=== PATIENT | female | born 1985 | race Hispanic/Latino ===

== ENCOUNTER 2017-04-08 09:43 | Emergency (ER) | payer OTHER | END 2017-04-08 12:11 | disposition home or self-care (01) | LOC: ERS 09:43 | DX: L25.9 Unspecified contact dermatitis, unspecified cause (principal); J45.909 Unspecified asthma, uncomplicated | CPT/HCPCS: 99282 ==

== ENCOUNTER 2017-08-08 16:47 | Outpatient (CLI) | payer OTHER ==
--- NOTE | 2017-08-08 18:15 | RAD ---
2 VIEWS LEFT HIP: Date: 08/08/17 PROVIDED CLINICAL HISTORY: Chronic left hip pain. FINDINGS: There is no evidence for fracture or other acute osseous abnormality. There is concentric/axial left hip joint space loss. There is associated acetabular overcoverage, which may predispose to femoral-ac etabular impingement. IMPRESSION: Axial joint space loss, which can be seen in the setting of inflammatory arthritis. Resultant acetabu lar overcoverage may predispose femoral-acetabular impingement. POS: LILA
--- NOTE | 2017-08-08 18:19 | RAD ---
RIGHT HIP RADIOGRAPHS TWO VIEWS: 08/08/2017 PROVIDED CLINICAL HISTORY: Right hip pain. FINDINGS: No evidence for fracture or other acute osseous abnormality. Postoperative changes of dynamic compre ssion screw fixation of previously described femoral fracture. No evidence for hardware loosening or migration. Right hip joint space appears mildly narrowed concentrically. There is resultant acetab ular over-coverage, which may predispose to femoral-acetabular impingement. IMPRESSION: 1. Post open reduction and internal fixation without evidence for complication. 2. Mild concentric/axial hip joint space loss, which can be seen in the setting of inflammatory arth ritis. Resultant acetabular over-coverage may predispose to femoral-acetabular impingement. POS: LILA
== END 2017-08-08 16:48 | disposition home or self-care (01) ==
LOC: SCSRAD 16:47
PROVIDERS: ATTEND Family Medicine
DX: M25.851 Other specified joint disorders, right hip (principal); M25.852 Other specified joint disorders, left hip; Z98.890 Other specified postprocedural states

== ENCOUNTER 2019-12-27 12:34 | Outpatient (CLI) | payer OTHER ==
--- NOTE | 2019-12-27 14:34 | CT ---
CT ABDOMEN AND PELVIS WITH AND WITHOUT IV CONTRAST 12/27/2019 CLINICAL INFORMATION: Microscopic hematuria. COMPARISON: None. Technique: Multiple contiguous axial CT images are obtained through the abdomen and pelvis with IV contrast. Cor onal reformatted images are provided. FINDINGS: Lower Chest: Lung bases are clear. Vessels: Abdominal aorta is normal in caliber. Abdomen: Portal vein:Patent Gallbladder: Surgically absent. Liver: within normal limits. Spleen: within normal limits. Pancreas: within normal limits. Adrenals: within normal limits. Kidneys and ureters: No renal or ureteral calculi are seen bilaterally, and there is no hydronephrosi s. No enhancing renal mass is identified. Bowel: Normal caliber. Appendix: The appendix is visualized and normal in caliber. Peritoneum: No ascites or free air; no fluid collection. Surgical clips are seen in the right posteri or lower pelvis and left anterior pelvis. Mesentery and Retroperitoneum: No enlarged mesenteric or retroperitoneal lymph nodes. Abdominal Wall: Tiny fat-containing umbilical hernia Pelvis: Reproductive Organs: No pelvic masses. Bladder: Incompletely distended. Bones: Postoperative changes right hip. No suspicious lytic or sclerotic osseous lesions are identifi ed. IMPRESSION: No renal or ureteral calculi are seen bilaterally, and no enhancing renal mass is identified.
== END 2019-12-27 12:35 | disposition home or self-care (01) ==
LOC: BICCT 12:34
PROVIDERS: ATTEND Family Medicine
DX: R31.29 Other microscopic hematuria (principal)
CPT/HCPCS: 74178

== ENCOUNTER 2021-04-21 13:06 | Outpatient (CLI) | payer BC | END 2021-04-21 13:07 | disposition home or self-care (01) | LOC: DTY/OP 13:06 | PROVIDERS: ATTEND Surgery | DX: E66.01 Morbid (severe) obesity due to excess calories (principal) | CPT/HCPCS: 97802 ==

== ENCOUNTER 2021-05-09 08:18 | Emergency (ER) | payer BC ==
[2021-05-09] MEDS ORDERED: Ketorolac Tromethamine 30 MG/ML VIAL ONE (08:46)
== END 2021-05-09 08:51 | disposition home or self-care (01) ==
LOC: ERS 08:18
DX: M25.531 Pain in right wrist (principal); J45.909 Unspecified asthma, uncomplicated; Z79.899 Other long term (current) drug therapy
CPT/HCPCS: 96372; 99283; J1885

== ENCOUNTER 2021-07-19 13:06 | Outpatient (CLI) | payer BC ==
[2021-07-20 00:10] LABS: SARS-CoV-2 PCR by NAA Not Detected (NotDetected)
== END 2021-07-19 13:07 | disposition home or self-care (01) ==
LOC: LABBT 13:06
PROVIDERS: ATTEND Surgery
DX: Z20.822 Contact with and (suspected) exposure to COVID-19 (principal)
CPT/HCPCS: U0003; U0005

== ENCOUNTER 2021-07-23 13:21 | Outpatient (CLI) | payer BC | END 2021-07-23 13:22 | disposition home or self-care (01) | LOC: RAD 13:21 | PROVIDERS: ATTEND Surgery | DX: K21.9 Gastro-esophageal reflux disease without esophagitis (principal); K44.9 Diaphragmatic hernia without obstruction or gangrene | CPT/HCPCS: 74220 ==

== ENCOUNTER 2021-12-13 09:26 | Inpatient (IN) | payer BC ==
[2021-12-14 10:04] VITALS: BMI 40.5
[2021-12-16] MEDS ORDERED: Ketamine 50 MG/ML (10ML VIAL) ONE (06:53)
[2021-12-16] MEDS ORDERED: fentaNYL Citrate/PF 100 MCG/2 ML SYRINGE ONE (06:53)
[2021-12-16] MEDS ORDERED: SUGAMMADEX SODIUM 200 MG/2 ML VIAL ONE (06:53)
[2021-12-16] MEDS ORDERED: Bupivacaine/Epinephrine 0.25% 30 ML VIAL ONE (06:54)
[2021-12-16] MEDS ORDERED: Levofloxacin 500 mg/D5W 100 ml Premix Bag ONE (07:13)
[2021-12-16] MEDS ORDERED: Famotidine/PF 20 mg/2ml Vial ONE (07:13)
[2021-12-16] MEDS ORDERED: Scopolamine 1.5 mg/72 hour Patch ONE (07:13)
[2021-12-16 07:20] LABS: Hemoglobin A1c 4.6 % (4.0-6.0)
[2021-12-16] MEDS ORDERED: PROPOFOL 200 MG/20 ML VIAL ONE (07:45)
[2021-12-16] MEDS ORDERED: Dexamethasone 20 MG/5 ML VIAL ONE (07:45)
[2021-12-16] MEDS ORDERED: Glycopyrrolate 0.2 MG/ML 5 ML SYRINGE ONE (07:45)
[2021-12-16] MEDS ORDERED: Ketorolac Tromethamine 30 MG/ML VIAL ONE (07:45)
[2021-12-16] MEDS ORDERED: Rocuronium Bromide 10 MG/ML (10ML VIAL) ONE (07:45)
[2021-12-16] MEDS ORDERED: Lidocaine 1% MPF 2 ML VIAL ONE (07:45)
[2021-12-16] MEDS ORDERED: NEOSTIGMINE 3 MG/3 ML SYR 3 MG/3 ML SYRINGE ONE (07:45)
[2021-12-16] MEDS ORDERED: Ondansetron PF 4 MG/2 ML Vial ONE ×2 (07:45→11:11)
[2021-12-16] MEDS ORDERED: Ondansetron HCl/PF 4 MG/2 ML Vial IVP PRN (09:54)
[2021-12-16] MEDS ORDERED: Promethazine HCl 25 MG/ML VIAL IVPB PRN (09:54)
[2021-12-16] MEDS ORDERED: Promethazine HCl 25 MG/ML VIAL IM PRN ×3 (09:54→15:08)
[2021-12-16] MEDS ORDERED: Ondansetron PF 4 MG/2 ML Vial IVP PRN ×2 (10:00→15:08)
[2021-12-16] MEDS ORDERED: Hydrocodone-Acetamin 15 ML UDCUP PO PRN (10:00)
[2021-12-16] MEDS ORDERED: Dextrose 50% Abboject 50 ML SYRINGE SLOW IVP PRN (10:00)
[2021-12-16] MEDS ORDERED: Dextrose 5% in Water 1,000 ML IV PRN (10:00)
[2021-12-16] MEDS ORDERED: diphenhydrAMINE 50 MG/ML VIAL IVP PRN ×2 (10:00→15:08)
[2021-12-16] MEDS ORDERED: Promethazine HCl 25 MG/ML VIAL ONE (10:12)
[2021-12-16] MEDS ORDERED: Fentanyl 100 MCG/2 ML VIAL ONE ×2 (10:20→11:15)
[2021-12-16] MEDS: D5 1/2 NS w/20 mEq KCL 1,000 ML IV SCH ×2 (11:55→21:49)
[2021-12-16] MEDS ORDERED: Naloxone HCl 0.4 mg/ml Vial IV PRN ×2 (14:49→15:08)
[2021-12-16] MEDS ORDERED: diphenhydrAMINE 25 MG CAP PO PRN ×2 (14:49→15:08)
[2021-12-16] MEDS ORDERED: fentaNYL Citrate/PF 2,000 MCG in Sodium Chloride 0.9% 60 ML IV PRN (14:49)
[2021-12-16] MEDS ORDERED: diphenhydrAMINE 50 MG/ML VIAL IM PRN ×2 (14:49→15:08)
[2021-12-16] MEDS ORDERED: Communication Order-Pharmacy FS SCH ×2 (15:00→15:15)
[2021-12-16] MEDS ORDERED: Zolpidem Tartrate 5 MG TAB PO PRN (15:08)
[2021-12-16] MEDS: fentaNYL Citrate/PF 2,000 MCG in Sodium Chloride 0.9% 60 ML IV PRN (15:37)
[2021-12-16] MEDS: Promethazine HCl 25 MG/ML VIAL IM PRN ×2 (16:09→22:38)
[2021-12-16] MEDS: Mometasone 100 MCG/PUFF (1 INHALER) INH SCH (18:58)
[2021-12-16] MEDS: Ondansetron PF 4 MG/2 ML Vial IVP PRN (20:10)
[2021-12-16] MEDS ORDERED: FLUTICASONE PROPIONATE 110 MCG INH SCH (21:00)
[2021-12-17] MEDS: Ondansetron PF 4 MG/2 ML Vial IVP PRN ×3 (01:25→20:39)
[2021-12-17] MEDS: Promethazine HCl 25 MG/ML VIAL IM PRN ×4 (02:33→17:13)
[2021-12-17] MEDS: D5 1/2 NS w/20 mEq KCL 1,000 ML IV SCH ×4 (04:49→20:39)
[2021-12-17 05:36] LABS: #Lymphocytes 0.8 thou/uL (1.20-3.40); #Monocytes 0.5 thou/uL (0.11-0.59); #Neutrophils 8.5 thou/uL (1.40-6.50); %Eosinophils 0.1 % (0.0-10.0); %Lymphocytes 7.7 % (21.0-51.0); %Monocytes 5.5 % (0.0-10.0); %Neutrophils 86.8 % (42.0-75.0); Mean Corpuscular HGB CONC 32.2 g/dL (32.0-36.0); Mean Corpuscular Hemoglobin 29.7 pg (27.0-31.0); Mean Corpuscular Volume 92.3 fL (78.0-98.0); Mean Platelet Volume 8.3 fL (7.4-10.4); Platelet Count 251 thou/uL (130-400); RBC Distribution Width 12.7 % (11.5-14.5); Red Blood Cell (RBC) Count 4.04 mill/uL (4.20-5.40); White Blood Cell (WBC) Count 9.8 thou/uL (4.8-10.8)
[2021-12-17 05:58] LABS: Anion Gap 10 mmol/L (10-20); BUN (Urea Nitrogen) Less than 4 mg/dL (7.0-18.7); Calc. Creatinine Clearance 207 mL/min (70-130); Calcium 8.6 mg/dL (7.8-10.44); Carbon Dioxide 21 mmol/L (22-29); Chloride 108 mmol/L (98-107); Estimated GFR 118; Glucose 140 mg/dL (70-105); Potassium 4.2 mmol/L (3.5-5.1); Sodium 135 mmol/L (136-145)
[2021-12-17] MEDS: Mometasone 100 MCG/PUFF (1 INHALER) INH SCH ×2 (07:31→20:23)
[2021-12-17] MEDS: Enoxaparin Sodium 40 MG/0.4 ML SYRINGE SC SCH (08:35)
[2021-12-17] MEDS: Montelukast Sodium 10 mg Tablet PO SCH (08:37)
[2021-12-17] MEDS: Pantoprazole 40 MG VIAL IVP SCH (08:37)
[2021-12-18] MEDS: Promethazine HCl 25 MG/ML VIAL IM PRN ×2 (00:06→06:15)
[2021-12-18] MEDS: Ondansetron PF 4 MG/2 ML Vial IVP PRN ×3 (04:16→21:53)
[2021-12-18] MEDS: D5 1/2 NS w/20 mEq KCL 1,000 ML IV SCH ×3 (04:22→19:13)
[2021-12-18] MEDS: fentaNYL Citrate/PF 2,000 MCG in Sodium Chloride 0.9% 60 ML IV PRN (06:13)
[2021-12-18] MEDS: Mometasone 100 MCG/PUFF (1 INHALER) INH SCH ×2 (08:22→19:17)
[2021-12-18] MEDS: Montelukast Sodium 10 mg Tablet PO SCH ×2 (08:41→08:42)
[2021-12-18] MEDS: Pantoprazole 40 MG VIAL IVP SCH (08:41)
[2021-12-18] MEDS: Enoxaparin Sodium 40 MG/0.4 ML SYRINGE SC SCH (08:41)
[2021-12-18] MEDS ORDERED: Hydrocodone-Acetamin 15 ML UDCUP PO PRN (09:54)
[2021-12-18] MEDS: Calcium Carbonate 500 MG ChewTAB PO PRN (20:03)
[2021-12-18] MEDS: Fentanyl 100 MCG/2 ML VIAL SLOW IVP PRN (21:53)
[2021-12-19] MEDS: D5 1/2 NS w/20 mEq KCL 1,000 ML IV SCH ×4 (02:00→22:54)
[2021-12-19] MEDS: Ondansetron PF 4 MG/2 ML Vial IVP PRN ×3 (04:38→21:47)
[2021-12-19] MEDS: Fentanyl 100 MCG/2 ML VIAL SLOW IVP PRN (04:38)
[2021-12-19] MEDS: Mometasone 100 MCG/PUFF (1 INHALER) INH SCH ×2 (07:12→19:18)
[2021-12-19] MEDS: Pantoprazole 40 MG VIAL IVP SCH (08:09)
[2021-12-19] MEDS: Enoxaparin Sodium 40 MG/0.4 ML SYRINGE SC SCH (08:09)
[2021-12-19] MEDS: Montelukast Sodium 10 mg Tablet PO SCH (08:09)
[2021-12-19] MEDS: Ketorolac Tromethamine 30 MG/ML VIAL IVP PRN ×2 (11:31→21:47)
[2021-12-19] MEDS: Promethazine HCl 25 MG/ML VIAL IM PRN (22:50)
[2021-12-20] MEDS: Fentanyl 100 MCG/2 ML VIAL SLOW IVP PRN ×3 (03:26→20:19)
[2021-12-20] MEDS: Ondansetron PF 4 MG/2 ML Vial IVP PRN ×3 (03:26→16:07)
[2021-12-20] MEDS: Mometasone 100 MCG/PUFF (1 INHALER) INH SCH ×2 (06:33→19:15)
[2021-12-20] MEDS: Montelukast Sodium 10 mg Tablet PO SCH (08:36)
[2021-12-20] MEDS: Enoxaparin Sodium 40 MG/0.4 ML SYRINGE SC SCH (08:37)
[2021-12-20] MEDS: Pantoprazole 40 MG VIAL IVP SCH (08:37)
[2021-12-20] MEDS: Promethazine HCl 25 MG/ML VIAL IM PRN ×3 (08:37→19:48)
[2021-12-20] MEDS: Ketorolac Tromethamine 30 MG/ML VIAL IVP PRN ×2 (08:37→16:07)
[2021-12-20] MEDS: D5 1/2 NS w/20 mEq KCL 1,000 ML IV SCH ×2 (08:37→15:47)
[2021-12-20] MEDS: Calcium Carbonate 500 MG ChewTAB PO PRN (21:48)
[2021-12-21] MEDS: D5 1/2 NS w/20 mEq KCL 1,000 ML IV SCH ×3 (00:34→20:00)
[2021-12-21] MEDS: Ondansetron PF 4 MG/2 ML Vial IVP PRN ×3 (01:42→19:59)
[2021-12-21 05:39] LABS: SARS-CoV-2 NAA Rapid Test Not Detected (NotDetected)
[2021-12-21 05:57] LABS: #Lymphocytes 0.7 thou/uL (1.20-3.40); #Monocytes 0.4 thou/uL (0.11-0.59); #Neutrophils 4.7 thou/uL (1.40-6.50); %Eosinophils 0.3 % (0.0-10.0); %Lymphocytes 12.1 % (21.0-51.0); %Monocytes 6.5 % (0.0-10.0); %Neutrophils 81.1 % (42.0-75.0); Hemoglobin 10.3 g/dL (12.0-16.0); Mean Corpuscular HGB CONC 32.5 g/dL (32.0-36.0); Mean Corpuscular Hemoglobin 29.3 pg (27.0-31.0); Mean Platelet Volume 8.3 fL (7.4-10.4); Platelet Count 247 thou/uL (130-400); RBC Distribution Width 12.6 % (11.5-14.5); Red Blood Cell (RBC) Count 3.52 mill/uL (4.20-5.40); White Blood Cell (WBC) Count 5.8 thou/uL (4.8-10.8)
[2021-12-21 06:26] LABS: ALT (SGPT) 70 U/L (8-55); AST (SGOT) 26 U/L (5-34); Albumin 3.2 g/dL (3.5-5.0); Alkaline Phosphatase 90 U/L (40-110); Anion Gap 9 mmol/L (10-20); BUN (Urea Nitrogen) Less than 4 mg/dL (7.0-18.7); Bilirubin, Total 0.5 mg/dL (0.2-1.2); Calc. Creatinine Clearance 225 mL/min (70-130); Calcium 8.4 mg/dL (7.8-10.44); Carbon Dioxide 25 mmol/L (22-29); Chloride 107 mmol/L (98-107); Estimated GFR 120; Globulin 2.5 g/dL (2.4-3.5); Glucose 136 mg/dL (70-105); Lipase 45 U/L (8-78); Magnesium 1.5 mg/dL (1.6-2.6); Phosphorus 3.3 mg/dL (2.3-4.7); Potassium 3.6 mmol/L (3.5-5.1); Protein, Total 5.7 g/dL (6.0-8.3); Sodium 137 mmol/L (136-145)
[2021-12-21] MEDS: Promethazine HCl 25 MG/ML VIAL IM PRN ×2 (07:15→15:31)
[2021-12-21] MEDS: Mometasone 100 MCG/PUFF (1 INHALER) INH SCH ×2 (07:37→18:34)
[2021-12-21] MEDS ORDERED: Ketamine 50 MG/ML (10ML VIAL) ONE (09:15)
[2021-12-21] MEDS ORDERED: PROPOFOL 200 MG/20 ML VIAL ONE (09:28)
[2021-12-21] MEDS ORDERED: Promethazine HCl 25 MG/ML VIAL ONE (09:59)
[2021-12-21] MEDS ORDERED: Promethazine HCl 25 MG/ML VIAL IVPB PRN (10:01)
[2021-12-21] MEDS ORDERED: Promethazine HCl 25 MG/ML VIAL IM PRN (10:01)
[2021-12-21] MEDS ORDERED: Ondansetron HCl/PF 4 MG/2 ML Vial IVP PRN (10:01)
[2021-12-21] MEDS: Montelukast Sodium 10 mg Tablet PO SCH (11:38)
[2021-12-21] MEDS: Enoxaparin Sodium 40 MG/0.4 ML SYRINGE SC SCH (11:43)
[2021-12-21] MEDS ORDERED: Pantoprazole 40 MG VIAL IVP SCH (12:15)
[2021-12-21] MEDS: Pantoprazole 40 MG VIAL IVP SCH ×2 (14:34→20:00)
[2021-12-21] MEDS: Fentanyl 100 MCG/2 ML VIAL SLOW IVP PRN (20:33)
[2021-12-22] MEDS: Promethazine HCl 25 MG/ML VIAL IM PRN ×4 (00:11→19:41)
[2021-12-22] MEDS: hydrALAZINE 20 MG/ML VIAL SLOW IVP PRN (00:55)
[2021-12-22] MEDS: Ondansetron PF 4 MG/2 ML Vial IVP PRN ×4 (01:56→20:36)
[2021-12-22] MEDS: Ketorolac Tromethamine 30 MG/ML VIAL IVP PRN (01:56)
[2021-12-22] MEDS: D5 1/2 NS w/20 mEq KCL 1,000 ML IV SCH ×3 (02:33→19:41)
[2021-12-22] MEDS: Mometasone 100 MCG/PUFF (1 INHALER) INH SCH ×2 (07:01→19:42)
[2021-12-22] MEDS: Enoxaparin Sodium 40 MG/0.4 ML SYRINGE SC SCH (08:44)
[2021-12-22] MEDS: Montelukast Sodium 10 mg Tablet PO SCH (08:45)
[2021-12-22] MEDS: Pantoprazole 40 MG VIAL IVP SCH ×2 (08:45→19:41)
[2021-12-22] MEDS: Fentanyl 100 MCG/2 ML VIAL SLOW IVP PRN (20:36)
[2021-12-23] MEDS: D5 1/2 NS w/20 mEq KCL 1,000 ML IV SCH ×3 (03:41→16:44)
[2021-12-23] MEDS: Ondansetron PF 4 MG/2 ML Vial IVP PRN ×4 (03:42→22:46)
[2021-12-23] MEDS: Fentanyl 100 MCG/2 ML VIAL SLOW IVP PRN ×2 (03:42→20:18)
[2021-12-23] MEDS: hydrALAZINE 20 MG/ML VIAL SLOW IVP PRN (04:54)
[2021-12-23 06:27] LABS: Anion Gap 14 mmol/L (10-20); BUN (Urea Nitrogen) 4 mg/dL (7.0-18.7); Calc. Creatinine Clearance 204 mL/min (70-130); Calcium 9.1 mg/dL (7.8-10.44); Carbon Dioxide 22 mmol/L (22-29); Chloride 103 mmol/L (98-107); Estimated GFR 118; Glucose 120 mg/dL (70-105); Potassium 3.7 mmol/L (3.5-5.1); Sodium 135 mmol/L (136-145)
[2021-12-23] MEDS: Mometasone 100 MCG/PUFF (1 INHALER) INH SCH ×2 (07:49→18:27)
[2021-12-23] MEDS: Enoxaparin Sodium 40 MG/0.4 ML SYRINGE SC SCH (07:52)
[2021-12-23] MEDS: Pantoprazole 40 MG VIAL IVP SCH ×2 (07:52→20:27)
[2021-12-23] MEDS: Montelukast Sodium 10 mg Tablet PO SCH (07:53)
[2021-12-23] MEDS ORDERED: Ondansetron ODT 8 MG TAB SL PRN (08:06)
[2021-12-23] MEDS ORDERED: Ondansetron ODT 4 MG TAB PO PRN (08:10)
[2021-12-23] MEDS: Promethazine HCl 25 MG/ML VIAL IM PRN (20:26)
[2021-12-24] MEDS: D5 1/2 NS w/20 mEq KCL 1,000 ML IV SCH ×3 (00:14→17:17)
[2021-12-24] MEDS: Mometasone 100 MCG/PUFF (1 INHALER) INH SCH ×2 (07:13→19:31)
[2021-12-24] MEDS: Enoxaparin Sodium 40 MG/0.4 ML SYRINGE SC SCH (08:04)
[2021-12-24] MEDS: Pantoprazole 40 MG VIAL IVP SCH ×2 (08:05→20:23)
[2021-12-24] MEDS: Montelukast Sodium 10 mg Tablet PO SCH (08:05)
[2021-12-24] MEDS: Ondansetron PF 4 MG/2 ML Vial IVP PRN ×2 (14:34→20:23)
[2021-12-24] MEDS: Fentanyl 100 MCG/2 ML VIAL SLOW IVP PRN (20:37)
[2021-12-24] MEDS: Promethazine HCl 25 MG/ML VIAL IM PRN (22:26)
[2021-12-25] MEDS: D5 1/2 NS w/20 mEq KCL 1,000 ML IV SCH ×2 (00:58→10:09)
[2021-12-25 05:47] LABS: #Basophils 0.1 thou/uL (0.0-0.2); #Eosinphils 0.1 thou/uL (0.0-0.7); #Lymphocytes 1.7 thou/uL (1.20-3.40); #Monocytes 0.6 thou/uL (0.11-0.59); #Neutrophils 3.5 thou/uL (1.40-6.50); %Basophils 1.2 % (0.0-1.0); %Eosinophils 2.4 % (0.0-10.0); %Lymphocytes 28.4 % (21.0-51.0); %Monocytes 9.8 % (0.0-10.0); %Neutrophils 58.2 % (42.0-75.0); Hemoglobin 11.2 g/dL (12.0-16.0); Mean Corpuscular HGB CONC 33.1 g/dL (32.0-36.0); Mean Corpuscular Hemoglobin 30.1 pg (27.0-31.0); Mean Corpuscular Volume 90.9 fL (78.0-98.0); Mean Platelet Volume 7.7 fL (7.4-10.4); Platelet Count 246 thou/uL (130-400); RBC Distribution Width 12.9 % (11.5-14.5); Red Blood Cell (RBC) Count 3.71 mill/uL (4.20-5.40)
[2021-12-25 06:07] LABS: ALT (SGPT) 41 U/L (8-55); AST (SGOT) 16 U/L (5-34); Albumin 3.2 g/dL (3.5-5.0); Alkaline Phosphatase 93 U/L (40-110); Anion Gap 7 mmol/L (10-20); BUN (Urea Nitrogen) 7 mg/dL (7.0-18.7); Bilirubin, Total 0.6 mg/dL (0.2-1.2); Calc. Creatinine Clearance 214 mL/min (70-130); Calcium 8.5 mg/dL (7.8-10.44); Carbon Dioxide 26 mmol/L (22-29); Chloride 106 mmol/L (98-107); Estimated GFR 119; Globulin 2.5 g/dL (2.4-3.5); Glucose 108 mg/dL (70-105); Magnesium 1.9 mg/dL (1.6-2.6); Phosphorus 4.1 mg/dL (2.3-4.7); Potassium 3.4 mmol/L (3.5-5.1); Protein, Total 5.7 g/dL (6.0-8.3); Sodium 136 mmol/L (136-145)
[2021-12-25] MEDS: Mometasone 100 MCG/PUFF (1 INHALER) INH SCH ×2 (07:53→18:12)
[2021-12-25] MEDS: Pantoprazole 40 MG VIAL IVP SCH ×2 (10:10→20:13)
[2021-12-25] MEDS: Montelukast Sodium 10 mg Tablet PO SCH (10:11)
[2021-12-25] MEDS: Enoxaparin Sodium 40 MG/0.4 ML SYRINGE SC SCH (10:12)
[2021-12-25] MEDS ORDERED: Potassium Chloride 40 MEQ in Premix Bag 1 BAG IVPB SCH (10:30)
[2021-12-25] MEDS ORDERED: HumaLOG 300 UNITS/3 ML VIAL SC PRN (13:43)
[2021-12-25] MEDS ORDERED: Dextrose 50% Abboject 50 ML SYRINGE SLOW IVP PRN (13:43)
[2021-12-25] MEDS ORDERED: Dextrose 5% in Water 1,000 ML IV PRN (13:43)
[2021-12-25] MEDS: Ondansetron PF 4 MG/2 ML Vial IVP PRN ×2 (15:57→22:28)
[2021-12-25] MEDS: Multivitamins, Adult 10 ML, TRACE ELEMENT CONCENTRATE 1 ML in D15W-AA 5% with Lytes 2,0... IV SCH (16:00)
[2021-12-25] MEDS: Promethazine HCl 25 MG/ML VIAL IM PRN (20:13)
[2021-12-25] MEDS: diphenhydrAMINE 50 MG/ML VIAL IVP PRN (20:13)
[2021-12-25] MEDS: Fentanyl 100 MCG/2 ML VIAL SLOW IVP PRN (22:28)
[2021-12-26] MEDS: D5 1/2 NS w/20 mEq KCL 1,000 ML IV SCH ×2 (02:49→09:43)
[2021-12-26 07:51] LABS: Anion Gap 12 mmol/L (10-20); BUN (Urea Nitrogen) 10 mg/dL (7.0-18.7); Calc. Creatinine Clearance 233 mL/min (70-130); Calcium 8.4 mg/dL (7.8-10.44); Carbon Dioxide 23 mmol/L (22-29); Chloride 105 mmol/L (98-107); Estimated GFR 121; Glucose 124 mg/dL (70-105); Potassium 3.5 mmol/L (3.5-5.1); Sodium 136 mmol/L (136-145)
[2021-12-26] MEDS: Mometasone 100 MCG/PUFF (1 INHALER) INH SCH ×2 (08:19→18:12)
[2021-12-26] MEDS: Montelukast Sodium 10 mg Tablet PO SCH (09:43)
[2021-12-26] MEDS: Enoxaparin Sodium 40 MG/0.4 ML SYRINGE SC SCH (09:43)
[2021-12-26] MEDS: Pantoprazole 40 MG VIAL IVP SCH ×2 (09:43→19:59)
[2021-12-26] MEDS ORDERED: Multivitamins, Adult 10 ML, TRACE ELEMENT CONCENTRATE 1 ML in D15W-AA 5% with Lytes 2,0... IV SCH (14:00)
[2021-12-26] MEDS: Fentanyl 100 MCG/2 ML VIAL SLOW IVP PRN (22:00)
[2021-12-27] MEDS: Mometasone 100 MCG/PUFF (1 INHALER) INH SCH ×2 (07:02→18:51)
[2021-12-27] MEDS: Enoxaparin Sodium 40 MG/0.4 ML SYRINGE SC SCH (08:47)
[2021-12-27] MEDS: Montelukast Sodium 10 mg Tablet PO SCH (08:48)
[2021-12-27] MEDS: Pantoprazole 40 MG VIAL IVP SCH ×2 (08:48→21:34)
[2021-12-27] MEDS: Multivitamins, Adult 10 ML, TRACE ELEMENT CONCENTRATE 1 ML in D15W-AA 5% with Lytes 2,0... IV SCH (14:53)
[2021-12-27] MEDS: Fentanyl 100 MCG/2 ML VIAL SLOW IVP PRN (21:44)
[2021-12-28] MEDS: Mometasone 100 MCG/PUFF (1 INHALER) INH SCH ×2 (07:02→19:40)
[2021-12-28] MEDS: Enoxaparin Sodium 40 MG/0.4 ML SYRINGE SC SCH (10:03)
[2021-12-28] MEDS: Pantoprazole 40 MG VIAL IVP SCH ×2 (10:03→22:34)
[2021-12-28] MEDS: Montelukast Sodium 10 mg Tablet PO SCH (10:09)
[2021-12-28] MEDS: Sodium Chloride 0.9% 1,000 ML IV SCH ×2 (14:56→22:34)
[2021-12-28] MEDS: Ondansetron PF 4 MG/2 ML Vial IVP PRN ×2 (16:53→22:35)
[2021-12-28] MEDS: Fentanyl 100 MCG/2 ML VIAL SLOW IVP PRN (17:06)
[2021-12-28] MEDS ORDERED: Fentanyl 100 MCG/2 ML VIAL SLOW IVP PRN (22:31)
[2021-12-28] MEDS ORDERED: Hydrocodone-Acetamin 15 ML UDCUP PO PRN (22:31)
[2021-12-28] MEDS: diphenhydrAMINE 50 MG/ML VIAL IVP PRN (22:46)
[2021-12-28] MEDS: Promethazine HCl 25 MG/ML VIAL IM PRN (23:44)
[2021-12-29 08:11] VITALS: TEMP 97.8
[2021-12-29] MEDS: Enoxaparin Sodium 40 MG/0.4 ML SYRINGE SC SCH (11:15)
[2021-12-29] MEDS: Sodium Chloride 0.9% 1,000 ML IV SCH (11:15)
[2021-12-29] MEDS: Mometasone 100 MCG/PUFF (1 INHALER) INH SCH (11:16)
[2021-12-29] MEDS: Pantoprazole 40 MG VIAL IVP SCH (11:16)
[2021-12-29] MEDS: Montelukast Sodium 10 mg Tablet PO SCH (11:16)
[2021-12-29 12:38] VITALS: BP 102/69
== END 2021-12-29 13:10 | disposition home or self-care (01) | DRG 620 ==
LOC: SURG A 12-16 06:07 → SJJU 12-16 12:08
PROVIDERS: ADMIT Surgery; ATTEND Surgery
PROC: 0D160ZA Bypass Stomach to Jejunum, Open Approach (ICD-10-PCS; principal; 2021-12-16)
PROC: 8E0W0CZ Robotic Assisted Procedure of Trunk Region, Open Approach (ICD-10-PCS; 2021-12-16)
PROC: 0DJ08ZZ Inspection of Upper Intestinal Tract, Via Natural or Artificial Opening Endoscopic (ICD-10-PCS; 2021-12-21)
PROC: 02HV33Z Insertion of Infusion Device into Superior Vena Cava, Percutaneous Approach (ICD-10-PCS; 2021-12-23)
PROC: B548ZZA Ultrasonography of Superior Vena Cava, Guidance (ICD-10-PCS; 2021-12-23)
DX: E66.01 Morbid (severe) obesity due to excess calories (principal); K91.30 Postprocedural intestinal obstruction, unspecified as to partial versus complete; K95.89 Other complications of other bariatric procedure; K21.9 Gastro-esophageal reflux disease without esophagitis; F41.9 Anxiety disorder, unspecified; J45.909 Unspecified asthma, uncomplicated; Z79.51 Long term (current) use of inhaled steroids; Z79.899 Other long term (current) drug therapy; Z90.49 Acquired absence of other specified parts of digestive tract; Z98.51 Tubal ligation status; Z68.41 Body mass index [BMI] 40.0-44.9, adult; Z88.0 Allergy status to penicillin; K91.0 Vomiting following gastrointestinal surgery; Y83.8 Other surgical procedures as the cause of abnormal reaction of the patient, or of later complication, without mention of misadventure at the time of the procedure
CPT/HCPCS: 36415; 36416; 36569; 71046; 74220; 80048; 80053; 83036; 83690; 83735; 84100; 85025; 87811; 94760; C9113; J0360; J1100; J1200; J1642; J1650; J1885; J1956; J2405; J2550; J2704; J3010; J3480; J3490; J7050; S0028; U0002

== ENCOUNTER 2022-01-06 16:38 | Day surgery (SDC) | payer BC ==
[2022-01-06] MEDS ORDERED: Ondansetron PF 4 MG/2 ML Vial IVP PRN (16:58)
[2022-01-06] MEDS ORDERED: Sodium Chloride 0.9% 1,000 ML IV SCH (17:00)
[2022-01-06] MEDS ORDERED: Thiamine HCl 200 MG/2 ML VIAL SLOW IVP SCH (17:00)
[2022-01-06] MEDS ORDERED: Multivitamins, Adult 10 ML in Sodium Chloride 0.9% 500 ML IV SCH (17:00)
[2022-01-06] MEDS ORDERED: Ondansetron PF 4 MG/2 ML Vial ONE ×2 (17:00→19:05)
[2022-01-06 18:03] VITALS: BP 143/94; TEMP 98.3
== END 2022-01-06 19:25 | disposition home or self-care (01) ==
LOC: ONC/OP 16:38
PROVIDERS: ATTEND Surgery
DX: E86.0 Dehydration (principal); Z88.0 Allergy status to penicillin
CPT/HCPCS: 96365; 96375; 96376; J2405; J3411; J7030

== ENCOUNTER 2022-01-06 19:38 | Inpatient (IN) | payer BC ==
[2022-01-06] MEDS ORDERED: Promethazine HCl 25 MG SUPP PR PRN (20:52)
[2022-01-06] MEDS: Lactated Ringer's 1,000 ML IV SCH (20:53)
[2022-01-06] MEDS ORDERED: Ondansetron ODT 4 MG TAB SL PRN (21:00)
[2022-01-06] MEDS ORDERED: Ketorolac Tromethamine 30 MG/ML VIAL IVP SCH (21:00)
[2022-01-06] MEDS: Ondansetron PF 4 MG/2 ML Vial IVP PRN (21:04)
[2022-01-06] MEDS: Pantoprazole 40 MG VIAL IVP SCH (21:06)
[2022-01-06 21:19] LABS: #Basophils 0.1 thou/uL (0.0-0.2); #Lymphocytes 0.3 thou/uL (1.20-3.40); #Monocytes 0.1 thou/uL (0.11-0.59); #Neutrophils 7.8 thou/uL (1.40-6.50); %Basophils 1.3 % (0.0-1.0); %Eosinophils 0.1 % (0.0-10.0); %Lymphocytes 3.6 % (21.0-51.0); %Monocytes 0.9 % (0.0-10.0); %Neutrophils 94.1 % (42.0-75.0); Hemoglobin 12.6 g/dL (12.0-16.0); Mean Corpuscular HGB CONC 32.5 g/dL (32.0-36.0); Mean Corpuscular Hemoglobin 29.5 pg (27.0-31.0); Mean Platelet Volume 8.8 fL (7.4-10.4); Platelet Count 205 thou/uL (130-400); RBC Distribution Width 12.6 % (11.5-14.5); Red Blood Cell (RBC) Count 4.27 mill/uL (4.20-5.40); White Blood Cell (WBC) Count 8.3 thou/uL (4.8-10.8)
[2022-01-06] MEDS: Promethazine HCl 25 MG/ML VIAL IM PRN (22:01)
[2022-01-06 22:06] LABS: ALT (SGPT) 36 U/L (8-55); AST (SGOT) 21 U/L (5-34); Albumin 3.8 g/dL (3.5-5.0); Alkaline Phosphatase 107 U/L (40-110); Anion Gap 19 mmol/L (10-20); BUN (Urea Nitrogen) 6 mg/dL (7.0-18.7); Bilirubin, Total 0.7 mg/dL (0.2-1.2); Calc. Creatinine Clearance 188 mL/min (70-130); Calcium 8.3 mg/dL (7.8-10.44); Carbon Dioxide 15 mmol/L (22-29); Chloride 111 mmol/L (98-107); Estimated GFR 108; Globulin 3.1 g/dL (2.4-3.5); Glucose 156 mg/dL (70-105); Potassium 3.8 mmol/L (3.5-5.1); Protein, Total 6.9 g/dL (6.0-8.3); Sodium 141 mmol/L (136-145)
[2022-01-06] MEDS: Enoxaparin Sodium 40 MG/0.4 ML SYRINGE SC SCH (22:56)
[2022-01-07] MEDS: Lactated Ringer's 1,000 ML IV SCH ×3 (00:10→10:50)
[2022-01-07] MEDS: Scopolamine 1.5 mg/72 hour Patch TOP PRN (00:16)
[2022-01-07] MEDS: Ondansetron PF 4 MG/2 ML Vial IVP PRN ×2 (04:36→14:59)
[2022-01-07] MEDS ORDERED: Lactated Ringer's 1,000 ML IV SCH (07:30)
[2022-01-07 08:54] LABS: SARS-CoV-2 NAA Rapid Test Not Detected (NotDetected)
[2022-01-07] MEDS ORDERED: FLU VACC QS2022-23(6MOS UP)/PF 60 MCG/0.5 ML SYRINGE IM ONE (09:00)
[2022-01-07] MEDS: Ketorolac Tromethamine 30 MG/ML VIAL IVP PRN (10:51)
[2022-01-07] MEDS: Multivitamins, Adult 10 ML, Folic Acid 1 MG, Thiamine HCl 100 MG in Dextrose 5 %-0.45 %... IV SCH (11:18)
[2022-01-07] MEDS: Thiamine HCl 200 MG/2 ML VIAL IM SCH (11:19)
[2022-01-07] MEDS ORDERED: LORazepam 2 MG/ML SYRINGE IVP PRN (18:54)
[2022-01-07] MEDS: Promethazine HCl 25 MG/ML VIAL IM PRN (19:06)
[2022-01-07] MEDS: Ondansetron HCl/PF 8 MG in Sodium Chloride 0.9% 50 ML IVPB SCH (21:49)
[2022-01-07] MEDS: Pantoprazole 40 MG VIAL IVP SCH (21:49)
[2022-01-07] MEDS: Enoxaparin Sodium 40 MG/0.4 ML SYRINGE SC SCH (21:49)
[2022-01-08] MEDS: Lactated Ringer's 1,000 ML IV SCH ×4 (01:29→20:10)
[2022-01-08] MEDS: Promethazine HCl 25 MG/ML VIAL IM PRN ×3 (01:29→23:48)
[2022-01-08] MEDS ORDERED: Midazolam HCl 2 mg/2 ml Vial ONE (07:53)
[2022-01-08] MEDS ORDERED: Fentanyl 100 MCG/2 ML VIAL ONE (07:53)
[2022-01-08] MEDS ORDERED: Ondansetron PF 4 MG/2 ML Vial ONE (07:55)
[2022-01-08] MEDS ORDERED: Promethazine HCl 25 MG/ML VIAL ONE (08:06)
[2022-01-08] MEDS ORDERED: Dexamethasone 20 MG/5 ML VIAL ONE (08:43)
[2022-01-08] MEDS ORDERED: PROPOFOL 200 MG/20 ML VIAL ONE (08:43)
[2022-01-08] MEDS: Ondansetron HCl/PF 8 MG in Sodium Chloride 0.9% 50 ML IVPB SCH ×2 (09:58→20:26)
[2022-01-08] MEDS: Multivitamins, Adult 10 ML, Folic Acid 1 MG, Thiamine HCl 100 MG in Dextrose 5 %-0.45 %... IV SCH (10:13)
[2022-01-08] MEDS: Thiamine HCl 200 MG/2 ML VIAL IM SCH (10:25)
[2022-01-08] MEDS: Ondansetron PF 4 MG/2 ML Vial IVP PRN (16:21)
[2022-01-08] MEDS ORDERED: Morphine 4 MG/ML VIAL SLOW IVP PRN (19:19)
[2022-01-08] MEDS ORDERED: Dextrose 50% Abboject 50 ML SYRINGE SLOW IVP PRN (19:19)
[2022-01-08] MEDS ORDERED: Dextrose 5% in Water 1,000 ML IV PRN (19:19)
[2022-01-08] MEDS ORDERED: TRACE ELEMENT CONCENTRATE 1 ML, Multivitamins, Adult 10 ML in D15W-AA 5% with Lytes 2,0... IV SCH (20:00)
[2022-01-08] MEDS: Pantoprazole 40 MG VIAL IVP SCH (20:11)
[2022-01-08] MEDS: Enoxaparin Sodium 40 MG/0.4 ML SYRINGE SC SCH (20:12)
[2022-01-08] MEDS: Ketorolac Tromethamine 30 MG/ML VIAL IVP PRN (23:45)
[2022-01-09] MEDS: Ondansetron PF 4 MG/2 ML Vial IVP PRN ×2 (03:38→17:41)
[2022-01-09] MEDS: Ketorolac Tromethamine 30 MG/ML VIAL IVP PRN (06:31)
[2022-01-09] MEDS: HumaLOG 300 UNITS/3 ML VIAL SC PRN (06:31)
[2022-01-09] MEDS: Ondansetron HCl/PF 8 MG in Sodium Chloride 0.9% 50 ML IVPB SCH ×2 (08:34→21:03)
[2022-01-09] MEDS: Thiamine HCl 200 MG/2 ML VIAL IM SCH (08:34)
[2022-01-09] MEDS: Promethazine HCl 25 MG/ML VIAL IM PRN (10:26)
[2022-01-09] MEDS ORDERED: Fentanyl 100 MCG/2 ML VIAL SLOW IVP PRN (12:23)
[2022-01-09] MEDS: Metoclopramide HCl 10 MG/2 ML VIAL IVP PRN ×2 (13:25→23:36)
[2022-01-09] MEDS ORDERED: FENTANYL 50 MCG/ML VIAL 50 MCG/ML VIAL SLOW IVP PRN (13:34)
[2022-01-09] MEDS ORDERED: Iopamidol-370 76% 500 ML 1 ML ONE (15:27)
[2022-01-09] MEDS ORDERED: TRACE ELEMENT CONCENTRATE 1 ML, Multivitamins, Adult 10 ML in D15W-AA 5% with Lytes 2,0... IV SCH (17:00)
[2022-01-09] MEDS: Enoxaparin Sodium 40 MG/0.4 ML SYRINGE SC SCH (20:56)
[2022-01-09] MEDS: Pantoprazole 40 MG VIAL IVP SCH (20:56)
[2022-01-09] MEDS: Lactated Ringer's 1,000 ML IV SCH (21:30)
[2022-01-10] MEDS: Scopolamine 1.5 mg/72 hour Patch TOP PRN (00:28)
[2022-01-10] MEDS: Ondansetron PF 4 MG/2 ML Vial IVP PRN (02:48)
[2022-01-10] MEDS: Promethazine HCl 25 MG/ML VIAL IM PRN ×3 (05:58→22:06)
[2022-01-10] MEDS: Ketorolac Tromethamine 30 MG/ML VIAL IVP PRN ×2 (06:09→20:19)
[2022-01-10 06:13] LABS: #Eosinphils 0.1 thou/uL (0.0-0.7); #Lymphocytes 1.1 thou/uL (1.20-3.40); #Monocytes 0.5 thou/uL (0.11-0.59); #Neutrophils 4.1 thou/uL (1.40-6.50); %Basophils 0.1 % (0.0-1.0); %Eosinophils 1.9 % (0.0-10.0); %Lymphocytes 18.3 % (21.0-51.0); %Monocytes 8.5 % (0.0-10.0); %Neutrophils 71.2 % (42.0-75.0); Hemoglobin 12.7 g/dL (12.0-16.0); Mean Corpuscular HGB CONC 32.3 g/dL (32.0-36.0); Mean Corpuscular Hemoglobin 29.3 pg (27.0-31.0); Mean Corpuscular Volume 90.5 fL (78.0-98.0); Platelet Count 209 thou/uL (130-400); RBC Distribution Width 12.7 % (11.5-14.5); Red Blood Cell (RBC) Count 4.33 mill/uL (4.20-5.40); White Blood Cell (WBC) Count 5.8 thou/uL (4.8-10.8)
[2022-01-10 06:32] LABS: Phosphorus 2.9 mg/dL (2.3-4.7)
[2022-01-10 06:36] LABS: ALT (SGPT) 29 U/L (8-55); AST (SGOT) 18 U/L (5-34); Albumin 3.4 g/dL (3.5-5.0); Alkaline Phosphatase 87 U/L (40-110); Anion Gap 11 mmol/L (10-20); BUN (Urea Nitrogen) 10 mg/dL (7.0-18.7); Bilirubin, Total 0.4 mg/dL (0.2-1.2); Calc. Creatinine Clearance 221 mL/min (70-130); Calcium 8.6 mg/dL (7.8-10.44); Carbon Dioxide 32 mmol/L (22-29); Chloride 96 mmol/L (98-107); Estimated GFR 119; Globulin 3.1 g/dL (2.4-3.5); Glucose 131 mg/dL (70-105); Magnesium 1.9 mg/dL (1.6-2.6); Protein, Total 6.5 g/dL (6.0-8.3); Sodium 136 mmol/L (136-145)
[2022-01-10 06:45] LABS: Potassium 2.5 mmol/L (3.5-5.1)
[2022-01-10] MEDS: Potassium Chloride 20 MEQ in Premix Bag 1 BAG IVPB SCH ×5 (08:44→22:06)
[2022-01-10] MEDS: Thiamine HCl 200 MG/2 ML VIAL IM SCH (08:49)
[2022-01-10] MEDS: Ondansetron HCl/PF 8 MG in Sodium Chloride 0.9% 50 ML IVPB SCH ×2 (10:47→20:20)
[2022-01-10] MEDS ORDERED: TRACE ELEMENT CONCENTRATE 1 ML, Multivitamins, Adult 10 ML in D15W-AA 5% with Lytes 2,0... IV SCH ×2 (12:15→14:00)
[2022-01-10] MEDS: Metoclopramide HCl 10 MG/2 ML VIAL IVP PRN (13:02)
[2022-01-10] MEDS: [UNRECOGNIZED DRUG - OTHER] IV SCH (14:39)
[2022-01-10] MEDS: TRACE ELEMENT IV SCH (14:39)
[2022-01-10] MEDS: POTASSIUM CHLORIDE IV SCH (14:39)
[2022-01-10] MEDS: MULTIVITAMINS IV SCH (14:39)
[2022-01-10] MEDS: Enoxaparin Sodium 40 MG/0.4 ML SYRINGE SC SCH ×2 (20:22→20:25)
[2022-01-10] MEDS: Pantoprazole 40 MG VIAL IVP SCH (20:22)
[2022-01-10 20:59] LABS: Anion Gap 12 mmol/L (10-20); BUN (Urea Nitrogen) 11 mg/dL (7.0-18.7); Calc. Creatinine Clearance 234 mL/min (70-130); Calcium 8.6 mg/dL (7.8-10.44); Carbon Dioxide 28 mmol/L (22-29); Chloride 100 mmol/L (98-107); Estimated GFR 120; Glucose 121 mg/dL (70-105); Sodium 137 mmol/L (136-145)
[2022-01-10 21:02] LABS: Potassium 2.9 mmol/L (3.5-5.1)
[2022-01-10] MEDS: Lactated Ringer's 1,000 ML IV SCH (21:02)
[2022-01-11] MEDS: Potassium Chloride 20 MEQ in Premix Bag 1 BAG IVPB SCH (00:54)
[2022-01-11] MEDS: Promethazine HCl 25 MG/ML VIAL IM PRN (04:09)
[2022-01-11] MEDS: Thiamine HCl 200 MG/2 ML VIAL IM SCH (08:39)
[2022-01-11] MEDS: Ondansetron HCl/PF 8 MG in Sodium Chloride 0.9% 50 ML IVPB SCH ×2 (08:47→20:55)
[2022-01-11 10:07] LABS: Anion Gap 11 mmol/L (10-20); BUN (Urea Nitrogen) 11 mg/dL (7.0-18.7); Calc. Creatinine Clearance 220 mL/min (70-130); Calcium 8.5 mg/dL (7.8-10.44); Carbon Dioxide 29 mmol/L (22-29); Chloride 100 mmol/L (98-107); Estimated GFR 118; Glucose 141 mg/dL (70-105); Phosphorus 2.7 mg/dL (2.3-4.7); Sodium 137 mmol/L (136-145)
[2022-01-11] MEDS ORDERED: fentaNYL Citrate/PF 100 MCG/2 ML SYRINGE ONE (13:20)
[2022-01-11] MEDS ORDERED: Propofol 500 MG/50 ML VIAL ONE (13:20)
[2022-01-11] MEDS ORDERED: Bupivacaine/Epinephrine 0.25% 30 ML VIAL ONE (13:21)
[2022-01-11] MEDS ORDERED: Levofloxacin 500 mg/D5W 100 ml Premix Bag ONE (13:29)
[2022-01-11] MEDS ORDERED: Glycopyrrolate 0.2 MG/ML 5 ML SYRINGE ONE (13:36)
[2022-01-11] MEDS ORDERED: Rocuronium Bromide 10 MG/ML (10ML VIAL) ONE (13:36)
[2022-01-11] MEDS ORDERED: Esmolol 100 MG/10 ML VIAL ONE (13:36)
[2022-01-11] MEDS ORDERED: PROPOFOL 200 MG/20 ML VIAL ONE (13:36)
[2022-01-11] MEDS ORDERED: NEOSTIGMINE 3 MG/3 ML SYR 3 MG/3 ML SYRINGE ONE (13:36)
[2022-01-11] MEDS ORDERED: Ondansetron PF 4 MG/2 ML Vial ONE (13:36)
[2022-01-11] MEDS ORDERED: Succinylcholine 200 MG/10 ml SYRINGE FS ONE (13:36)
[2022-01-11] MEDS ORDERED: PHENYLEPHRINE-NS 100 MCG/ML 10 ML SYRINGE ONE (13:36)
[2022-01-11] MEDS ORDERED: TRACE ELEMENT CONCENTRATE 1 ML, Multivitamins, Adult 10 ML in D15W-AA 5% with Lytes 2,0... IV SCH (14:00)
[2022-01-11] MEDS ORDERED: Phenylephrine 10 MG/ML VIAL ONE (14:33)
[2022-01-11] MEDS ORDERED: Promethazine HCl 25 MG/ML VIAL ONE ×3 (15:17→15:29)
[2022-01-11] MEDS ORDERED: Albumin 5% 500 ML ONE (15:19)
[2022-01-11] MEDS ORDERED: FENTANYL 50 MCG/ML VIAL 50 MCG/ML VIAL ONE (16:05)
[2022-01-11] MEDS ORDERED: FENTANYL 500 MCG/10 ML VIAL 2,000 MCG in Sodium Chloride 0.9% 60 ML IV PRN (16:08)
[2022-01-11] MEDS ORDERED: diphenhydrAMINE 50 MG/ML VIAL IM PRN (16:08)
[2022-01-11] MEDS ORDERED: Zolpidem Tartrate 5 MG TAB PO PRN (16:08)
[2022-01-11] MEDS ORDERED: Naloxone HCl 0.4 mg/ml Vial IV PRN (16:08)
[2022-01-11] MEDS ORDERED: diphenhydrAMINE 25 MG CAP PO PRN (16:08)
[2022-01-11] MEDS ORDERED: diphenhydrAMINE 50 MG/ML VIAL IVP PRN (16:08)
[2022-01-11] MEDS ORDERED: Ondansetron PF 4 MG/2 ML Vial IVP PRN (16:08)
[2022-01-11] MEDS ORDERED: Communication Order-Pharmacy FS SCH (16:15)
[2022-01-11] MEDS: [UNRECOGNIZED DRUG - OTHER] IV SCH (17:19)
[2022-01-11] MEDS: MULTIVITAMINS IV SCH (17:19)
[2022-01-11] MEDS: POTASSIUM CHLORIDE IV SCH (17:19)
[2022-01-11] MEDS: Lactated Ringer's 1,000 ML IV SCH (18:12)
[2022-01-11] MEDS: HumaLOG 300 UNITS/3 ML VIAL SC PRN (18:33)
[2022-01-11] MEDS: Pantoprazole 40 MG VIAL IVP SCH (20:54)
[2022-01-12 05:57] LABS: #Lymphocytes 1.2 thou/uL (1.20-3.40); #Monocytes 0.5 thou/uL (0.11-0.59); #Neutrophils 5.6 thou/uL (1.40-6.50); %Basophils 0.2 % (0.0-1.0); %Eosinophils 0.4 % (0.0-10.0); %Lymphocytes 16.1 % (21.0-51.0); %Monocytes 6.9 % (0.0-10.0); %Neutrophils 76.5 % (42.0-75.0); Hemoglobin 11.5 g/dL (12.0-16.0); Mean Corpuscular HGB CONC 32.4 g/dL (32.0-36.0); Mean Corpuscular Volume 92.7 fl (78.0-98.0); Mean Platelet Volume 8.9 fL (7.4-10.4); Platelet Count 173 thou/uL (130-400); Red Blood Cell (RBC) Count 3.83 mill/uL (4.20-5.40); White Blood Cell (WBC) Count 7.3 thou/uL (4.8-10.8)
[2022-01-12 06:53] LABS: Anion Gap 10 mmol/L (10-20); BUN (Urea Nitrogen) 14 mg/dL (7.0-18.7); Calc. Creatinine Clearance 246 mL/min (70-130); Calcium 8.5 mg/dL (7.8-10.44); Carbon Dioxide 26 mmol/L (22-29); Chloride 104 mmol/L (98-107); Estimated GFR 121; Glucose 120 mg/dL (70-105); Potassium 3.6 mmol/L (3.5-5.1); Sodium 136 mmol/L (136-145)
[2022-01-12] MEDS: Ondansetron HCl/PF 8 MG in Sodium Chloride 0.9% 50 ML IVPB SCH ×2 (08:22→20:30)
[2022-01-12] MEDS: Thiamine HCl 200 MG/2 ML VIAL IM SCH (08:24)
[2022-01-12] MEDS: MULTIVITAMINS IV SCH (14:35)
[2022-01-12] MEDS: [UNRECOGNIZED DRUG - OTHER] IV SCH (14:35)
[2022-01-12] MEDS: TRACE ELEMENT IV SCH (14:35)
[2022-01-12] MEDS: POTASSIUM CHLORIDE IV SCH (14:35)
[2022-01-12] MEDS: Pantoprazole 40 MG VIAL IVP SCH (20:27)
[2022-01-12] MEDS: Lactated Ringer's 1,000 ML IV SCH (20:30)
[2022-01-13 06:42] LABS: Anion Gap 10 mmol/L (10-20); BUN (Urea Nitrogen) 12 mg/dL (7.0-18.7); Calc. Creatinine Clearance 273 mL/min (70-130); Calcium 8.2 mg/dL (7.8-10.44); Carbon Dioxide 25 mmol/L (22-29); Chloride 106 mmol/L (98-107); Estimated GFR 124; Glucose 98 mg/dL (70-105); Phosphorus 4.1 mg/dL (2.3-4.7); Potassium 3.9 mmol/L (3.5-5.1); Sodium 137 mmol/L (136-145)
[2022-01-13] MEDS: Ondansetron HCl/PF 8 MG in Sodium Chloride 0.9% 50 ML IVPB SCH ×2 (09:16→20:23)
[2022-01-13] MEDS: POTASSIUM CHLORIDE IV SCH (14:14)
[2022-01-13] MEDS: [UNRECOGNIZED DRUG - OTHER] IV SCH (14:14)
[2022-01-13] MEDS: MULTIVITAMINS IV SCH (14:14)
[2022-01-13 16:27] VITALS: BMI 44.1
[2022-01-13] MEDS: Pantoprazole 40 MG VIAL IVP SCH (20:23)
[2022-01-14] MEDS: Lactated Ringer's 1,000 ML IV SCH (02:10)
[2022-01-14] MEDS: Simethicone Chewable 80 MG TAB PO PRN ×4 (02:16→20:00)
[2022-01-14] MEDS: Thiamine HCl 200 MG/2 ML VIAL IM SCH (07:52)
[2022-01-14] MEDS: Ondansetron HCl/PF 8 MG in Sodium Chloride 0.9% 50 ML IVPB SCH ×2 (08:46→20:08)
[2022-01-14] MEDS ORDERED: Hydrocodone-Acetamin 15 ML UDCUP PO PRN ×3 (11:08→11:24)
[2022-01-14] MEDS ORDERED: Acetaminophen 650 MG/20.3 ML UDCUP PO PRN (11:09)
[2022-01-14] MEDS: Pantoprazole 40 MG VIAL IVP SCH (20:01)
[2022-01-14] MEDS: Promethazine HCl 25 MG/ML VIAL IM PRN (22:34)
[2022-01-15] MEDS: Ondansetron HCl/PF 8 MG in Sodium Chloride 0.9% 50 ML IVPB SCH (09:42)
[2022-01-15 11:54] VITALS: BP 108/74; TEMP 97.8
[2022-01-15] MEDS: Promethazine HCl 25 MG/ML VIAL IM PRN (12:56)
== END 2022-01-15 13:05 | disposition home or self-care (01) | DRG 327 ==
LOC: SURG A 19:59
PROVIDERS: ADMIT Surgery; ATTEND Specialist
PROC: 0D768ZZ Dilation of Stomach, Via Natural or Artificial Opening Endoscopic (ICD-10-PCS; principal; 2022-01-08)
PROC: 0D7A8ZZ Dilation of Jejunum, Via Natural or Artificial Opening Endoscopic (ICD-10-PCS; 2022-01-08)
PROC: 0BQT4ZZ Repair Diaphragm, Percutaneous Endoscopic Approach (ICD-10-PCS; 2022-01-11)
PROC: 8E0W4CZ Robotic Assisted Procedure of Trunk Region, Percutaneous Endoscopic Approach (ICD-10-PCS; 2022-01-11)
DX: K95.89 Other complications of other bariatric procedure (principal); Z20.822 Contact with and (suspected) exposure to COVID-19; Z23 Encounter for immunization; K91.30 Postprocedural intestinal obstruction, unspecified as to partial versus complete; E86.0 Dehydration; Y84.8 Other medical procedures as the cause of abnormal reaction of the patient, or of later complication, without mention of misadventure at the time of the procedure; K44.9 Diaphragmatic hernia without obstruction or gangrene; J45.909 Unspecified asthma, uncomplicated; F41.9 Anxiety disorder, unspecified; Z88.0 Allergy status to penicillin; Z98.51 Tubal ligation status; Z90.49 Acquired absence of other specified parts of digestive tract; Z98.890 Other specified postprocedural states; Z79.899 Other long term (current) drug therapy
CPT/HCPCS: 36415; 36416; 74160; 80048; 80053; 83735; 84100; 85025; 87811; 90471; 90686; 96365; 96375; 96376; C9113; G0008; J1100; J1650; J1815; J1885; J1956; J2250; J2270; J2370; J2405; J2550; J2704; J2765; J3010; J3411; J3480; J3490; J7030; J7042; J7120; P9045; Q9967; U0002

== ENCOUNTER 2022-01-16 09:27 | Inpatient (IN) | payer BC ==
[2022-01-16 10:08] LABS: #Eosinphils 0.1 thou/uL (0.0-0.7); #Lymphocytes 0.4 thou/uL (1.20-3.40); #Monocytes 0.3 thou/uL (0.11-0.59); #Neutrophils 7.3 thou/uL (1.40-6.50); %Basophils 0.2 % (0.0-1.0); %Lymphocytes 5.1 % (21.0-51.0); %Monocytes 3.4 % (0.0-10.0); %Neutrophils 90.3 % (42.0-75.0); Hemoglobin 13.1 g/dL (12.0-16.0); Mean Corpuscular Hemoglobin 30.4 pg (27.0-31.0); Platelet Count 243 thou/uL (130-400); RBC Distribution Width 12.9 % (11.5-14.5); White Blood Cell (WBC) Count 8.1 thou/uL (4.8-10.8)
[2022-01-16 10:48] LABS: ALT (SGPT) 82 U/L (8-55); AST (SGOT) 30 U/L (5-34); Albumin 3.7 g/dL (3.5-5.0); Alkaline Phosphatase 113 U/L (40-110); Anion Gap 16 mmol/L (10-20); BUN (Urea Nitrogen) 7 mg/dL (7.0-18.7); Bilirubin, Total 0.7 mg/dL (0.2-1.2); Calc. Creatinine Clearance 0 mL/min (70-130); Calcium 9.2 mg/dL (7.8-10.44); Carbon Dioxide 23 mmol/L (22-29); Chloride 104 mmol/L (98-107); Estimated GFR 116; Globulin 3.3 g/dL (2.4-3.5); Glucose 175 mg/dL (70-105); Lipase 102 U/L (8-78); Potassium 3.9 mmol/L (3.5-5.1); Sodium 139 mmol/L (136-145)
[2022-01-16] MEDS ORDERED: Metoclopramide HCl 10 MG/2 ML VIAL ONE (12:54)
[2022-01-16] MEDS ORDERED: Ondansetron PF 4 MG/2 ML Vial ONE (12:54)
[2022-01-16] MEDS ORDERED: diphenhydrAMINE 50 MG/ML VIAL ONE (12:54)
[2022-01-16 13:09] LABS: Lactic Acid 1.7 mmol/L (0.5-2.2)
[2022-01-16] MEDS ORDERED: Iopamidol-370 76% 500 ML 1 ML ONE (13:55)
[2022-01-16] MEDS ORDERED: Haloperidol Lactate 5 MG/ML VIAL ONE (15:08)
[2022-01-16] MEDS ORDERED: Heparin 1,000 UNITS/ML VIAL ONE (16:11)
[2022-01-16] MEDS ORDERED: Morphine 4 MG/ML VIAL SLOW IVP PRN (16:53)
[2022-01-16] MEDS ORDERED: Dextrose 50% Abboject 50 ML SYRINGE SLOW IVP PRN (16:53)
[2022-01-16] MEDS ORDERED: Hydrocodone-Acetamin 15 ML UDCUP PO PRN (16:53)
[2022-01-16] MEDS ORDERED: Albuterol Sulfate 2.5 mg/3 ml Neb NEB PRN (16:53)
[2022-01-16] MEDS ORDERED: Dextrose 5% in Water 1,000 ML IV PRN (16:53)
[2022-01-16] MEDS ORDERED: FLU VACC QS2022-23(6MOS UP)/PF 60 MCG/0.5 ML SYRINGE IM ONE (17:00)
[2022-01-16] MEDS: Thiamine HCl 200 MG/2 ML VIAL SLOW IVP SCH (17:19)
[2022-01-16] MEDS: Ondansetron PF 4 MG/2 ML Vial IVP PRN (17:19)
[2022-01-16] MEDS: D5 1/2 NS w/20 mEq KCL 1,000 ML IV SCH (17:19)
[2022-01-16] MEDS: Mometasone 100 MCG/PUFF (1 INHALER) INH SCH (18:39)
[2022-01-16] MEDS: Promethazine HCl 25 MG/ML VIAL IM PRN ×2 (19:19→23:14)
[2022-01-16] MEDS: Enoxaparin Sodium 40 MG/0.4 ML SYRINGE SC SCH (19:19)
[2022-01-17] MEDS: Ondansetron PF 4 MG/2 ML Vial IVP PRN ×3 (01:16→18:25)
[2022-01-17] MEDS: D5 1/2 NS w/20 mEq KCL 1,000 ML IV SCH ×3 (01:16→21:35)
[2022-01-17 06:31] LABS: Anion Gap 10 mmol/L (10-20); BUN (Urea Nitrogen) 4 mg/dL (7.0-18.7); Calc. Creatinine Clearance 194 mL/min (70-130); Calcium 8.6 mg/dL (7.8-10.44); Carbon Dioxide 25 mmol/L (22-29); Chloride 106 mmol/L (98-107); Estimated GFR 117; Glucose 119 mg/dL (70-105); Sodium 137 mmol/L (136-145)
[2022-01-17] MEDS: Mometasone 100 MCG/PUFF (1 INHALER) INH SCH ×2 (07:53→18:38)
[2022-01-17] MEDS: Pantoprazole 40 MG VIAL IVP SCH (09:14)
[2022-01-17] MEDS: Promethazine HCl 25 MG/ML VIAL IM PRN ×2 (11:11→15:20)
[2022-01-17] MEDS ORDERED: Fentanyl 100 MCG/2 ML VIAL SLOW IVP PRN ×2 (11:36)
[2022-01-17] MEDS ORDERED: FENTANYL 50 MCG/ML 1 ML VIAL SLOW IVP PRN (17:42)
[2022-01-17] MEDS: Thiamine HCl 200 MG/2 ML VIAL SLOW IVP SCH (17:53)
[2022-01-17] MEDS: FENTANYL 50 MCG/ML 1 ML VIAL SLOW IVP PRN (17:54)
[2022-01-17] MEDS: Enoxaparin Sodium 40 MG/0.4 ML SYRINGE SC SCH (20:15)
[2022-01-17] MEDS ORDERED: Simethicone Chewable 80 MG TAB PO SCH (21:15)
[2022-01-18] MEDS: Promethazine HCl 25 MG/ML VIAL IM PRN ×6 (00:14→18:10)
[2022-01-18] MEDS: D5 1/2 NS w/20 mEq KCL 1,000 ML IV SCH ×4 (01:07→23:36)
[2022-01-18] MEDS: Ondansetron PF 4 MG/2 ML Vial IVP PRN ×3 (03:52→21:08)
[2022-01-18] MEDS: Mometasone 100 MCG/PUFF (1 INHALER) INH SCH ×2 (07:43→19:10)
[2022-01-18] MEDS: Pantoprazole 40 MG VIAL IVP SCH (08:07)
[2022-01-18] MEDS: hydrALAZINE 20 MG/ML VIAL SLOW IVP PRN (08:07)
[2022-01-18] MEDS ORDERED: Simethicone Chewable 80 MG TAB PO SCH (15:00)
[2022-01-18 15:05] LABS: SARS-CoV-2 NAA Rapid Test Not Detected (NotDetected)
[2022-01-18] MEDS: Thiamine HCl 200 MG/2 ML VIAL SLOW IVP SCH (18:09)
[2022-01-18] MEDS: diphenhydrAMINE 50 MG/ML VIAL IVP PRN (21:16)
[2022-01-18] MEDS: Enoxaparin Sodium 40 MG/0.4 ML SYRINGE SC SCH (21:19)
[2022-01-19] MEDS: Promethazine HCl 25 MG/ML VIAL IM PRN ×4 (00:23→23:12)
[2022-01-19] MEDS: Ondansetron PF 4 MG/2 ML Vial IVP PRN (05:30)
[2022-01-19] MEDS: Mometasone 100 MCG/PUFF (1 INHALER) INH SCH ×2 (07:33→18:33)
[2022-01-19] MEDS ORDERED: fentaNYL PF 100 MCG/2 ML SYRINGE ONE (07:50)
[2022-01-19] MEDS ORDERED: PROPOFOL 200 MG/20 ML VIAL ONE (08:28)
[2022-01-19] MEDS: D5 1/2 NS w/20 mEq KCL 1,000 ML IV SCH ×2 (09:55→16:22)
[2022-01-19] MEDS: Pantoprazole 40 MG VIAL IVP SCH (09:55)
[2022-01-19] MEDS: Ondansetron PF 4 MG/2 ML Vial IVP SCH ×3 (09:55→20:01)
[2022-01-19] MEDS: hydrALAZINE 20 MG/ML VIAL SLOW IVP PRN (15:09)
[2022-01-19] MEDS: Thiamine HCl 200 MG/2 ML VIAL SLOW IVP SCH (16:22)
[2022-01-19] MEDS: FENTANYL 50 MCG/ML 1 ML VIAL SLOW IVP PRN (18:33)
[2022-01-19] MEDS: Enoxaparin Sodium 40 MG/0.4 ML SYRINGE SC SCH (19:58)
[2022-01-19] MEDS: diphenhydrAMINE 50 MG/ML VIAL IVP PRN (19:58)
[2022-01-19] MEDS: Mirtazapine 15 MG TAB PO SCH (20:00)
[2022-01-20] MEDS: diphenhydrAMINE 50 MG/ML VIAL IVP PRN (03:01)
[2022-01-20] MEDS: Ondansetron PF 4 MG/2 ML Vial IVP SCH ×4 (03:01→20:47)
[2022-01-20] MEDS: D5 1/2 NS w/20 mEq KCL 1,000 ML IV SCH ×3 (03:03→16:04)
[2022-01-20] MEDS: Mirtazapine 15 MG TAB PO SCH ×2 (04:56→20:47)
[2022-01-20] MEDS: FENTANYL 50 MCG/ML 1 ML VIAL SLOW IVP PRN ×7 (04:57→23:03)
[2022-01-20] MEDS: Mometasone 100 MCG/PUFF (1 INHALER) INH SCH ×2 (06:45→18:27)
[2022-01-20] MEDS: Pantoprazole 40 MG VIAL IVP SCH (08:32)
[2022-01-20] MEDS: Promethazine HCl 25 MG/ML VIAL IM PRN ×2 (12:09→23:03)
[2022-01-20] MEDS: Thiamine HCl 200 MG/2 ML VIAL SLOW IVP SCH (16:04)
[2022-01-20] MEDS: Enoxaparin Sodium 40 MG/0.4 ML SYRINGE SC SCH (20:47)
[2022-01-21] MEDS: Ondansetron PF 4 MG/2 ML Vial IVP SCH ×4 (03:41→19:55)
[2022-01-21] MEDS: D5 1/2 NS w/20 mEq KCL 1,000 ML IV SCH ×4 (03:44→20:00)
[2022-01-21] MEDS: FENTANYL 50 MCG/ML 1 ML VIAL SLOW IVP PRN (06:09)
[2022-01-21] MEDS: Promethazine HCl 25 MG/ML VIAL IM PRN ×3 (06:09→23:57)
[2022-01-21] MEDS: Pantoprazole 40 MG VIAL IVP SCH (08:09)
[2022-01-21] MEDS: Mometasone 100 MCG/PUFF (1 INHALER) INH SCH ×2 (10:20→19:35)
[2022-01-21] MEDS: Thiamine HCl 200 MG/2 ML VIAL SLOW IVP SCH (16:40)
[2022-01-21] MEDS: Mirtazapine 15 MG TAB PO SCH (19:50)
[2022-01-21] MEDS: Enoxaparin Sodium 40 MG/0.4 ML SYRINGE SC SCH (19:50)
[2022-01-22] MEDS: Ondansetron PF 4 MG/2 ML Vial IVP SCH ×4 (03:14→20:00)
[2022-01-22 06:11] LABS: #Eosinphils 0.2 thou/uL (0.0-0.7); #Lymphocytes 0.9 thou/uL (1.20-3.40); #Monocytes 0.4 thou/uL (0.11-0.59); #Neutrophils 6.9 thou/uL (1.40-6.50); %Basophils 0.5 % (0.0-1.0); %Eosinophils 2.2 % (0.0-10.0); %Lymphocytes 10.4 % (21.0-51.0); %Monocytes 5.1 % (0.0-10.0); %Neutrophils 81.8 % (42.0-75.0); Hemoglobin 11.6 g/dL (12.0-16.0); Mean Corpuscular HGB CONC 31.9 g/dL (32.0-36.0); Mean Corpuscular Hemoglobin 29.2 pg (27.0-31.0); Mean Corpuscular Volume 91.6 fl (78.0-98.0); Mean Platelet Volume 7.6 fL (7.4-10.4); Platelet Count 197 thou/uL (130-400); Red Blood Cell (RBC) Count 3.98 mill/uL (4.20-5.40); White Blood Cell (WBC) Count 8.5 thou/uL (4.8-10.8)
[2022-01-22 06:28] LABS: INR-International Normal Ratio 1.2; PTT 31.7 sec (22.9-36.1); Prothrombin Time 15.9 sec (12.0-14.7)
[2022-01-22 06:35] LABS: ALT (SGPT) 68 U/L (8-55); AST (SGOT) 31 U/L (5-34); Albumin 3.4 g/dL (3.5-5.0); Alkaline Phosphatase 101 U/L (40-110); Anion Gap 11 mmol/L (10-20); BUN (Urea Nitrogen) Less than 4 mg/dL (7.0-18.7); Bilirubin, Total 1.2 mg/dL (0.2-1.2); Calc. Creatinine Clearance 190 mL/min (70-130); Calcium 8.8 mg/dL (7.8-10.44); Carbon Dioxide 26 mmol/L (22-29); Cardiac Risk 2.8 (Less than 4.5); Chloride 103 mmol/L (98-107); Cholesterol 103 mg/dl (< 200 Desired); Estimated GFR 119; Globulin 2.6 g/dL (2.4-3.5); Glucose 124 mg/dL (70-105); HDL Cholesterol 37 mg/dL (>60 Neg Risk); LDL Cholesterol, Calculated 55 mg/dL; Magnesium 1.7 mg/dL (1.6-2.6); Potassium 3.3 mmol/L (3.5-5.1); Sodium 137 mmol/L (136-145); Triglycerides 56 mg/dL (Less than 150)
[2022-01-22] MEDS: Mometasone 100 MCG/PUFF (1 INHALER) INH SCH ×2 (07:49→18:29)
[2022-01-22] MEDS: Pantoprazole 40 MG VIAL IVP SCH (08:13)
[2022-01-22] MEDS: MAGNESIUM SULFATE IV SCH (14:39)
[2022-01-22] MEDS: [UNRECOGNIZED DRUG - OTHER] IV SCH (14:39)
[2022-01-22] MEDS: MULTIVITAMINS IV SCH (14:39)
[2022-01-22] MEDS: D5 1/2 NS w/20 mEq KCL 1,000 ML IV SCH (17:35)
[2022-01-22] MEDS: Promethazine HCl 25 MG/ML VIAL IM PRN (17:36)
[2022-01-22] MEDS: Thiamine HCl 200 MG/2 ML VIAL SLOW IVP SCH (17:36)
[2022-01-22] MEDS: Mirtazapine 15 MG TAB PO SCH (21:42)
[2022-01-22] MEDS: Enoxaparin Sodium 40 MG/0.4 ML SYRINGE SC SCH (21:42)
[2022-01-23] MEDS: Promethazine HCl 25 MG/ML VIAL IM PRN ×3 (01:17→19:34)
[2022-01-23] MEDS: Ondansetron PF 4 MG/2 ML Vial IVP SCH ×4 (03:29→21:58)
[2022-01-23 06:25] LABS: ALT (SGPT) 63 U/L (8-55); AST (SGOT) 22 U/L (5-34); Albumin 3.5 g/dL (3.5-5.0); Alkaline Phosphatase 104 U/L (40-110); Anion Gap 11 mmol/L (10-20); BUN (Urea Nitrogen) 10 mg/dL (7.0-18.7); Bilirubin, Total 0.9 mg/dL (0.2-1.2); Calc. Creatinine Clearance 194 mL/min (70-130); Calcium 8.7 mg/dL (7.8-10.44); Carbon Dioxide 27 mmol/L (22-29); Chloride 101 mmol/L (98-107); Estimated GFR 119; Globulin 2.9 g/dL (2.4-3.5); Glucose 98 mg/dL (70-105); Magnesium 2.2 mg/dL (1.6-2.6); Phosphorus 3.8 mg/dL (2.3-4.7); Potassium 3.6 mmol/L (3.5-5.1); Protein, Total 6.4 g/dL (6.0-8.3); Sodium 135 mmol/L (136-145)
[2022-01-23] MEDS: Mometasone 100 MCG/PUFF (1 INHALER) INH SCH ×2 (06:59→19:08)
[2022-01-23] MEDS: Pantoprazole 40 MG VIAL IVP SCH (08:36)
[2022-01-23] MEDS: Thiamine HCl 200 MG/2 ML VIAL SLOW IVP SCH (14:30)
[2022-01-23] MEDS: [UNRECOGNIZED DRUG - OTHER] IV SCH (14:30)
[2022-01-23] MEDS: MULTIVITAMINS IV SCH (14:30)
[2022-01-23] MEDS: MAGNESIUM SULFATE IV SCH (14:30)
[2022-01-23] MEDS: FENTANYL 50 MCG/ML 1 ML VIAL SLOW IVP PRN (21:58)
[2022-01-23] MEDS: Mirtazapine 15 MG TAB PO SCH (22:14)
[2022-01-23] MEDS: Enoxaparin Sodium 40 MG/0.4 ML SYRINGE SC SCH (22:14)
[2022-01-24] MEDS: Promethazine HCl 25 MG/ML VIAL IM PRN (00:40)
[2022-01-24] MEDS: Ondansetron PF 4 MG/2 ML Vial IVP SCH ×4 (02:47→21:11)
[2022-01-24] MEDS: diphenhydrAMINE 50 MG/ML VIAL IVP PRN (02:50)
[2022-01-24] MEDS: FENTANYL 50 MCG/ML 1 ML VIAL SLOW IVP PRN ×4 (04:08→21:52)
[2022-01-24] MEDS: Mometasone 100 MCG/PUFF (1 INHALER) INH SCH ×2 (06:04→19:05)
[2022-01-24 06:25] LABS: ALT (SGPT) 50 U/L (8-55); AST (SGOT) 19 U/L (5-34); Albumin 3.4 g/dL (3.5-5.0); Alkaline Phosphatase 106 U/L (40-110); Anion Gap 13 mmol/L (10-20); BUN (Urea Nitrogen) 11 mg/dL (7.0-18.7); Bilirubin, Total 0.8 mg/dL (0.2-1.2); Calc. Creatinine Clearance 179 mL/min (70-130); Calcium 8.7 mg/dL (7.8-10.44); Carbon Dioxide 24 mmol/L (22-29); Chloride 102 mmol/L (98-107); Estimated GFR 117; Globulin 2.9 g/dL (2.4-3.5); Glucose 137 mg/dL (70-105); Magnesium 2.2 mg/dL (1.6-2.6); Phosphorus 3.3 mg/dL (2.3-4.7); Potassium 3.8 mmol/L (3.5-5.1); Protein, Total 6.3 g/dL (6.0-8.3); Sodium 135 mmol/L (136-145)
[2022-01-24] MEDS: Pantoprazole 40 MG VIAL IVP SCH (09:43)
[2022-01-24] MEDS ORDERED: chlorproMAZINE HCl 50 MG/2 ML AMP IM SCH (10:45)
[2022-01-24] MEDS: [UNRECOGNIZED DRUG - OTHER] IV SCH (15:45)
[2022-01-24] MEDS: FAT EMULSION IV SCH (15:45)
[2022-01-24] MEDS: MAGNESIUM SULFATE IV SCH (15:45)
[2022-01-24] MEDS: MULTIVITAMINS IV SCH (15:45)
[2022-01-24] MEDS: Metoclopramide HCl 10 MG/2 ML VIAL IVP SCH (19:19)
[2022-01-24] MEDS: Enoxaparin Sodium 40 MG/0.4 ML SYRINGE SC SCH (21:10)
[2022-01-24] MEDS: Thiamine HCl 200 MG/2 ML VIAL SLOW IVP SCH (21:10)
[2022-01-24] MEDS: Mirtazapine 15 MG TAB PO SCH (21:11)
[2022-01-24] MEDS: D5 1/2 NS w/20 mEq KCL 1,000 ML IV SCH (21:53)
[2022-01-25] MEDS: Metoclopramide HCl 10 MG/2 ML VIAL IVP SCH ×5 (00:26→23:50)
[2022-01-25] MEDS: FENTANYL 50 MCG/ML 1 ML VIAL SLOW IVP PRN ×3 (03:38→21:04)
[2022-01-25] MEDS: Ondansetron PF 4 MG/2 ML Vial IVP SCH ×4 (03:38→21:04)
[2022-01-25 05:39] LABS: Phosphorus 3.5 mg/dL (2.3-4.7)
[2022-01-25 05:51] LABS: ALT (SGPT) 45 U/L (8-55); AST (SGOT) 19 U/L (5-34); Albumin 3.2 g/dL (3.5-5.0); Alkaline Phosphatase 93 U/L (40-110); Anion Gap 11 mmol/L (10-20); BUN (Urea Nitrogen) 10 mg/dL (7.0-18.7); Bilirubin, Total 0.5 mg/dL (0.2-1.2); Calc. Creatinine Clearance 198 mL/min (70-130); Calcium 8.5 mg/dL (7.8-10.44); Carbon Dioxide 25 mmol/L (22-29); Chloride 103 mmol/L (98-107); Estimated GFR 120; Globulin 2.6 g/dL (2.4-3.5); Glucose 101 mg/dL (70-105); Magnesium 2.1 mg/dL (1.6-2.6); Potassium 3.7 mmol/L (3.5-5.1); Protein, Total 5.8 g/dL (6.0-8.3); Sodium 135 mmol/L (136-145)
[2022-01-25] MEDS: Mometasone 100 MCG/PUFF (1 INHALER) INH SCH ×2 (06:32→18:57)
[2022-01-25] MEDS ORDERED: chlorproMAZINE HCl 50 MG/2 ML AMP IM PRN (08:18)
[2022-01-25] MEDS: Pantoprazole 40 MG VIAL IVP SCH (08:32)
[2022-01-25] MEDS ORDERED: Metoclopramide HCl 10 MG/2 ML VIAL IVP SCH (09:00)
[2022-01-25] MEDS: MAGNESIUM SULFATE IV SCH (14:21)
[2022-01-25] MEDS: [UNRECOGNIZED DRUG - OTHER] IV SCH (14:21)
[2022-01-25] MEDS: MULTIVITAMINS IV SCH (14:21)
[2022-01-25] MEDS: Promethazine HCl 25 MG/ML VIAL IM PRN (15:50)
[2022-01-25] MEDS: Thiamine HCl 200 MG/2 ML VIAL SLOW IVP SCH (17:34)
[2022-01-25] MEDS: Enoxaparin Sodium 40 MG/0.4 ML SYRINGE SC SCH (21:00)
[2022-01-25] MEDS: Mirtazapine 15 MG TAB PO SCH (23:27)
[2022-01-25] MEDS: D5 1/2 NS w/20 mEq KCL 1,000 ML IV SCH (23:52)
[2022-01-26] MEDS ORDERED: chlorproMAZINE HCl 50 MG/2 ML AMP IM PRN (05:58)
[2022-01-26] MEDS: Ondansetron PF 4 MG/2 ML Vial IVP SCH ×4 (06:06→21:00)
[2022-01-26 06:33] LABS: ALT (SGPT) 39 U/L (8-55); AST (SGOT) 17 U/L (5-34); Albumin 2.9 g/dL (3.5-5.0); Alkaline Phosphatase 94 U/L (40-110); Anion Gap 7 mmol/L (10-20); BUN (Urea Nitrogen) 9 mg/dL (7.0-18.7); Bilirubin, Total 0.6 mg/dL (0.2-1.2); Calc. Creatinine Clearance 202 mL/min (70-130); Calcium 8.3 mg/dL (7.8-10.44); Carbon Dioxide 28 mmol/L (22-29); Chloride 103 mmol/L (98-107); Estimated GFR 120; Globulin 2.1 g/dL (2.4-3.5); Glucose 120 mg/dL (70-105); Sodium 134 mmol/L (136-145)
[2022-01-26] MEDS ORDERED: Metoclopramide HCl 10 MG/2 ML VIAL IVP SCH ×2 (07:30→12:00)
[2022-01-26] MEDS: Mometasone 100 MCG/PUFF (1 INHALER) INH SCH ×2 (08:51→18:55)
[2022-01-26] MEDS: Pantoprazole 40 MG VIAL IVP SCH (09:11)
[2022-01-26] MEDS: chlorproMAZINE HCl 50 MG/2 ML AMP IM SCH ×3 (10:39→23:57)
[2022-01-26] MEDS: FENTANYL 50 MCG/ML 1 ML VIAL SLOW IVP PRN ×2 (12:29→18:52)
[2022-01-26] MEDS: MAGNESIUM SULFATE IV SCH (14:19)
[2022-01-26] MEDS: FAT EMULSION IV SCH (14:19)
[2022-01-26] MEDS: MULTIVITAMINS IV SCH (14:19)
[2022-01-26] MEDS: [UNRECOGNIZED DRUG - OTHER] IV SCH (14:19)
[2022-01-26] MEDS: Thiamine HCl 200 MG/2 ML VIAL SLOW IVP SCH (17:57)
[2022-01-26] MEDS: Enoxaparin Sodium 40 MG/0.4 ML SYRINGE SC SCH (21:04)
[2022-01-26] MEDS: Mirtazapine 15 MG TAB PO SCH (21:04)
[2022-01-27] MEDS: FENTANYL 50 MCG/ML 1 ML VIAL SLOW IVP PRN ×3 (01:19→20:26)
[2022-01-27] MEDS: D5 1/2 NS w/20 mEq KCL 1,000 ML IV SCH (01:23)
[2022-01-27] MEDS: Ondansetron PF 4 MG/2 ML Vial IVP SCH ×4 (03:40→20:27)
[2022-01-27] MEDS: chlorproMAZINE HCl 50 MG/2 ML AMP IM SCH ×2 (05:30→18:25)
[2022-01-27 05:46] LABS: Phosphorus 4.2 mg/dL (2.3-4.7)
[2022-01-27 05:52] LABS: ALT (SGPT) 34 U/L (8-55); AST (SGOT) 19 U/L (5-34); Albumin 2.7 g/dL (3.5-5.0); Alkaline Phosphatase 94 U/L (40-110); Anion Gap 12 mmol/L (10-20); BUN (Urea Nitrogen) 8 mg/dL (7.0-18.7); Bilirubin, Total 0.5 mg/dL (0.2-1.2); Calc. Creatinine Clearance 203 mL/min (70-130); Calcium 8.3 mg/dL (7.8-10.44); Carbon Dioxide 23 mmol/L (22-29); Chloride 103 mmol/L (98-107); Estimated GFR 120; Globulin 2.5 g/dL (2.4-3.5); Glucose 114 mg/dL (70-105); Potassium 3.7 mmol/L (3.5-5.1); Protein, Total 5.2 g/dL (6.0-8.3); Sodium 134 mmol/L (136-145)
[2022-01-27] MEDS: Mometasone 100 MCG/PUFF (1 INHALER) INH SCH ×2 (06:49→18:09)
[2022-01-27] MEDS: Pantoprazole 40 MG VIAL IVP SCH (09:49)
[2022-01-27] MEDS ORDERED: Hydrocodone-Acetamin 15 ML UDCUP PO PRN (10:04)
[2022-01-27] MEDS ORDERED: chlorproMAZINE HCl 25 MG TAB PO SCH (12:00)
[2022-01-27] MEDS: MAGNESIUM SULFATE IV SCH (14:36)
[2022-01-27] MEDS: [UNRECOGNIZED DRUG - OTHER] IV SCH (14:36)
[2022-01-27] MEDS: MULTIVITAMINS IV SCH (14:36)
[2022-01-27] MEDS ORDERED: chlorproMAZINE HCl 50 MG/2 ML AMP SLOW IVP SCH (18:00)
[2022-01-27] MEDS: Mirtazapine 15 MG TAB PO SCH (20:27)
[2022-01-27] MEDS: Enoxaparin Sodium 40 MG/0.4 ML SYRINGE SC SCH (20:32)
[2022-01-28] MEDS: chlorproMAZINE HCl 50 MG/2 ML AMP IM SCH ×4 (01:14→18:07)
[2022-01-28] MEDS: Ondansetron PF 4 MG/2 ML Vial IVP SCH ×4 (03:22→21:18)
[2022-01-28 05:43] LABS: #Eosinphils 0.1 thou/uL (0.0-0.7); #Lymphocytes 1.2 thou/uL (1.20-3.40); #Monocytes 0.4 thou/uL (0.11-0.59); #Neutrophils 3.7 thou/uL (1.40-6.50); %Basophils 0.5 % (0.0-1.0); %Eosinophils 1.9 % (0.0-10.0); %Lymphocytes 22.5 % (21.0-51.0); %Monocytes 7.8 % (0.0-10.0); %Neutrophils 67.3 % (42.0-75.0); Hemoglobin 10.5 g/dL (12.0-16.0); Mean Corpuscular HGB CONC 32.6 g/dL (32.0-36.0); Mean Corpuscular Hemoglobin 29.8 pg (27.0-31.0); Mean Corpuscular Volume 91.4 fl (78.0-98.0); Mean Platelet Volume 8.3 fL (7.4-10.4); Platelet Count 147 10x3/uL (130-400); RBC Distribution Width 12.7 % (11.5-14.5); Red Blood Cell (RBC) Count 3.54 mill/uL (4.20-5.40); White Blood Cell (WBC) Count 5.5 10x3/uL (4.8-10.8)
[2022-01-28] MEDS: D5 1/2 NS w/20 mEq KCL 1,000 ML IV SCH (06:15)
[2022-01-28 06:19] LABS: Anion Gap 8 mmol/L (10-20); BUN (Urea Nitrogen) 10 mg/dL (7.0-18.7); Calc. Creatinine Clearance 222 mL/min (70-130); Calcium 8.2 mg/dL (7.8-10.44); Carbon Dioxide 25 mmol/L (22-29); Chloride 104 mmol/L (98-107); Estimated GFR 123; Glucose 124 mg/dL (70-105); Sodium 133 mmol/L (136-145)
[2022-01-28] MEDS: FENTANYL 50 MCG/ML 1 ML VIAL SLOW IVP PRN ×3 (06:22→21:18)
[2022-01-28] MEDS: Mometasone 100 MCG/PUFF (1 INHALER) INH SCH ×2 (07:21→19:38)
[2022-01-28 09:30] LABS: Phosphorus 3.7 mg/dL (2.3-4.7)
[2022-01-28] MEDS: Pantoprazole 40 MG VIAL IVP SCH (10:16)
[2022-01-28] MEDS: FAT EMULSION IV SCH (14:50)
[2022-01-28] MEDS: MAGNESIUM SULFATE IV SCH (14:50)
[2022-01-28] MEDS: MULTIVITAMINS IV SCH (14:50)
[2022-01-28] MEDS: [UNRECOGNIZED DRUG - OTHER] IV SCH (14:50)
[2022-01-28] MEDS: Mirtazapine 15 MG TAB PO SCH (21:18)
[2022-01-28] MEDS: Enoxaparin Sodium 40 MG/0.4 ML SYRINGE SC SCH (21:18)
[2022-01-29] MEDS: chlorproMAZINE HCl 50 MG/2 ML AMP IM SCH ×4 (00:14→17:16)
[2022-01-29] MEDS: FENTANYL 50 MCG/ML 1 ML VIAL SLOW IVP PRN ×3 (04:17→19:02)
[2022-01-29] MEDS: Ondansetron PF 4 MG/2 ML Vial IVP SCH ×4 (04:17→20:21)
[2022-01-29 06:23] LABS: Anion Gap 10 mmol/L (10-20); BUN (Urea Nitrogen) 8 mg/dL (7.0-18.7); Calc. Creatinine Clearance 202 mL/min (70-130); Calcium 8.6 mg/dL (7.8-10.44); Carbon Dioxide 27 mmol/L (22-29); Chloride 104 mmol/L (98-107); Estimated GFR 120; Glucose 108 mg/dL (70-105); Phosphorus 4.8 mg/dL (2.3-4.7); Potassium 4.1 mmol/L (3.5-5.1); Sodium 137 mmol/L (136-145)
[2022-01-29] MEDS: Mometasone 100 MCG/PUFF (1 INHALER) INH SCH ×2 (08:02→19:17)
[2022-01-29] MEDS: Pantoprazole 40 MG VIAL IVP SCH (09:50)
[2022-01-29] MEDS: D5 1/2 NS w/20 mEq KCL 1,000 ML IV SCH (11:59)
[2022-01-29] MEDS: MULTIVITAMINS IV SCH (15:04)
[2022-01-29] MEDS: [UNRECOGNIZED DRUG - OTHER] IV SCH (15:04)
[2022-01-29] MEDS: MAGNESIUM SULFATE IV SCH (15:04)
[2022-01-29] MEDS: Enoxaparin Sodium 40 MG/0.4 ML SYRINGE SC SCH (20:21)
[2022-01-29] MEDS: Mirtazapine 15 MG TAB PO SCH (20:21)
[2022-01-30] MEDS: chlorproMAZINE HCl 50 MG/2 ML AMP IM SCH ×5 (00:20→23:58)
[2022-01-30] MEDS: FENTANYL 50 MCG/ML 1 ML VIAL SLOW IVP PRN ×3 (02:13→18:01)
[2022-01-30] MEDS: Ondansetron PF 4 MG/2 ML Vial IVP SCH ×4 (02:13→20:30)
[2022-01-30 06:31] LABS: Anion Gap 8 mmol/L (10-20); BUN (Urea Nitrogen) 10 mg/dL (7.0-18.7); Calc. Creatinine Clearance 213 mL/min (70-130); Calcium 8.1 mg/dL (7.8-10.44); Carbon Dioxide 28 mmol/L (22-29); Chloride 102 mmol/L (98-107); Estimated GFR 121; Glucose 127 mg/dL (70-105); Phosphorus 4.2 mg/dL (2.3-4.7); Potassium 4.2 mmol/L (3.5-5.1); Sodium 134 mmol/L (136-145)
[2022-01-30] MEDS: Mometasone 100 MCG/PUFF (1 INHALER) INH SCH ×2 (07:17→18:54)
[2022-01-30] MEDS: Pantoprazole 40 MG VIAL IVP SCH (08:31)
[2022-01-30] MEDS: [UNRECOGNIZED DRUG - OTHER] IV SCH (14:19)
[2022-01-30] MEDS: MAGNESIUM SULFATE IV SCH (14:19)
[2022-01-30] MEDS: MULTIVITAMINS IV SCH (14:19)
[2022-01-30] MEDS: D5 1/2 NS w/20 mEq KCL 1,000 ML IV SCH (18:01)
[2022-01-30] MEDS: Enoxaparin Sodium 40 MG/0.4 ML SYRINGE SC SCH (20:30)
[2022-01-30] MEDS: Mirtazapine 15 MG TAB PO SCH ×2 (20:30→20:31)
[2022-01-31] MEDS: Ondansetron PF 4 MG/2 ML Vial IVP SCH ×4 (03:23→21:03)
[2022-01-31] MEDS: chlorproMAZINE HCl 50 MG/2 ML AMP IM SCH (05:33)
[2022-01-31] MEDS: FENTANYL 50 MCG/ML 1 ML VIAL SLOW IVP PRN ×2 (06:06)
[2022-01-31] MEDS: Pantoprazole 40 MG VIAL IVP SCH (08:23)
[2022-01-31] MEDS: chlorproMAZINE HCl 25 MG TAB PO SCH ×2 (12:33→18:40)
[2022-01-31] MEDS ORDERED: Acetaminophen 325 MG TAB PO PRN (12:49)
[2022-01-31] MEDS: Mometasone 100 MCG/PUFF (1 INHALER) INH SCH ×2 (13:44→19:16)
[2022-01-31] MEDS ORDERED: Iopamidol-370 76% 500 ML 1 ML ONE (14:09)
[2022-01-31] MEDS: MULTIVITAMINS IV SCH (14:38)
[2022-01-31] MEDS: [UNRECOGNIZED DRUG - OTHER] IV SCH (14:38)
[2022-01-31] MEDS: FAT EMULSION IV SCH (14:38)
[2022-01-31] MEDS: MAGNESIUM SULFATE IV SCH (14:38)
[2022-01-31] MEDS: HYDROcodone/Acetaminophen 7.5/325 mg Tablet PO PRN (14:51)
[2022-01-31] MEDS: Mirtazapine 15 MG TAB PO SCH (21:02)
[2022-01-31] MEDS: Enoxaparin Sodium 40 MG/0.4 ML SYRINGE SC SCH (21:02)
[2022-01-31] MEDS: D5 1/2 NS w/20 mEq KCL 1,000 ML IV SCH (21:12)
[2022-02-01] MEDS: chlorproMAZINE HCl 25 MG TAB PO SCH ×2 (00:46→06:28)
[2022-02-01] MEDS: Ondansetron PF 4 MG/2 ML Vial IVP SCH ×4 (03:27→20:21)
[2022-02-01] MEDS: Mometasone 100 MCG/PUFF (1 INHALER) INH SCH ×2 (07:05→19:43)
[2022-02-01] MEDS ORDERED: Iopamidol-370 76% 500 ML 1 ML ONE (08:59)
[2022-02-01] MEDS: Pantoprazole 40 MG VIAL IVP SCH (09:47)
[2022-02-01] MEDS: chlorproMAZINE HCl 25 MG TAB PO PRN ×2 (14:41→21:02)
[2022-02-01] MEDS: [UNRECOGNIZED DRUG - OTHER] IV SCH (15:53)
[2022-02-01] MEDS: MAGNESIUM SULFATE IV SCH (15:53)
[2022-02-01] MEDS: MULTIVITAMINS IV SCH (15:53)
[2022-02-01] MEDS: Promethazine HCl 25 MG/ML VIAL IM PRN (16:04)
[2022-02-01] MEDS: Enoxaparin Sodium 40 MG/0.4 ML SYRINGE SC SCH (20:21)
[2022-02-01] MEDS: D5 1/2 NS w/20 mEq KCL 1,000 ML IV SCH (23:50)
[2022-02-02] MEDS: Promethazine HCl 25 MG/ML VIAL IM PRN ×3 (00:06→21:41)
[2022-02-02] MEDS: Mometasone 100 MCG/PUFF (1 INHALER) INH SCH ×2 (06:57→19:06)
[2022-02-02] MEDS: D5 1/2 NS w/20 mEq KCL 1,000 ML IV SCH ×3 (07:06→18:38)
[2022-02-02] MEDS: Ondansetron PF 4 MG/2 ML Vial IVP SCH ×4 (07:06→20:02)
[2022-02-02] MEDS: Pantoprazole 40 MG VIAL IVP SCH (09:17)
[2022-02-02] MEDS: chlorproMAZINE HCl 25 MG TAB PO PRN (09:17)
[2022-02-02] MEDS ORDERED: chlorproMAZINE HCl 50 MG/2 ML AMP IM PRN (13:56)
[2022-02-02] MEDS: FENTANYL 50 MCG/ML 1 ML VIAL SLOW IVP PRN ×2 (15:36→21:36)
[2022-02-02] MEDS: Enoxaparin Sodium 40 MG/0.4 ML SYRINGE SC SCH (20:02)
[2022-02-03] MEDS: Ondansetron PF 4 MG/2 ML Vial IVP SCH ×4 (03:44→21:26)
[2022-02-03] MEDS: D5 1/2 NS w/20 mEq KCL 1,000 ML IV SCH ×2 (03:44→11:57)
[2022-02-03] MEDS: FENTANYL 50 MCG/ML 1 ML VIAL SLOW IVP PRN ×3 (03:58→16:37)
[2022-02-03] MEDS: Mometasone 100 MCG/PUFF (1 INHALER) INH SCH ×2 (07:06→19:28)
[2022-02-03] MEDS: Pantoprazole 40 MG VIAL IVP SCH (07:59)
[2022-02-03] MEDS ORDERED: chlorproMAZINE HCl 50 MG/2 ML AMP IM SCH (10:30)
[2022-02-03] MEDS ORDERED: Ketorolac Tromethamine 30 MG/ML VIAL IVP SCH (13:15)
[2022-02-03] MEDS: MAGNESIUM SULFATE IV SCH (13:39)
[2022-02-03] MEDS: MULTIVITAMINS IV SCH (13:39)
[2022-02-03] MEDS: [UNRECOGNIZED DRUG - OTHER] IV SCH (13:39)
[2022-02-03] MEDS: chlorproMAZINE HCl 50 MG/2 ML AMP IM SCH ×2 (16:33→21:28)
[2022-02-03] MEDS: Promethazine HCl 25 MG/ML VIAL IM PRN ×2 (18:03→20:45)
[2022-02-03] MEDS: Enoxaparin Sodium 40 MG/0.4 ML SYRINGE SC SCH (21:28)
[2022-02-04] MEDS: FENTANYL 50 MCG/ML 1 ML VIAL SLOW IVP PRN (00:12)
[2022-02-04] MEDS: D5 1/2 NS w/20 mEq KCL 1,000 ML IV SCH ×2 (02:35→21:15)
[2022-02-04] MEDS: Ondansetron PF 4 MG/2 ML Vial IVP SCH ×4 (02:36→20:29)
[2022-02-04] MEDS: Ketorolac Tromethamine 30 MG/ML VIAL IVP PRN ×2 (04:42→10:19)
[2022-02-04] MEDS: Promethazine HCl 25 MG/ML VIAL IM PRN ×2 (04:42→13:21)
[2022-02-04 05:50] LABS: #Eosinphils 0.1 thou/uL (0.0-0.7); #Monocytes 0.6 thou/uL (0.11-0.59); #Neutrophils 4.7 thou/uL (1.40-6.50); %Basophils 0.3 % (0.0-1.0); %Eosinophils 1.6 % (0.0-10.0); %Lymphocytes 15.3 % (21.0-51.0); %Monocytes 8.8 % (0.0-10.0); Hemoglobin 10.7 g/dL (12.0-16.0); Mean Corpuscular HGB CONC 31.5 g/dL (32.0-36.0); Mean Corpuscular Hemoglobin 29.2 pg (27.0-31.0); Mean Corpuscular Volume 92.8 fl (78.0-98.0); Mean Platelet Volume 8.4 fL (7.4-10.4); Platelet Count 219 10x3/uL (130-400); RBC Distribution Width 12.8 % (11.5-14.5); Red Blood Cell (RBC) Count 3.66 mill/uL (4.20-5.40); White Blood Cell (WBC) Count 6.3 10x3/uL (4.8-10.8)
[2022-02-04 06:15] LABS: Anion Gap 10 mmol/L (10-20); BUN (Urea Nitrogen) 7 mg/dL (7.0-18.7); Calc. Creatinine Clearance 203 mL/min (70-130); Calcium 8.2 mg/dL (7.8-10.44); Carbon Dioxide 26 mmol/L (22-29); Chloride 104 mmol/L (98-107); Estimated GFR 119; Glucose 119 mg/dL (70-105); Magnesium 1.8 mg/dL (1.6-2.6); Phosphorus 4.1 mg/dL (2.3-4.7); Sodium 136 mmol/L (136-145)
[2022-02-04] MEDS: Mometasone 100 MCG/PUFF (1 INHALER) INH SCH ×2 (07:00→18:53)
[2022-02-04] MEDS ORDERED: cloNIDine 0.1 MG TAB PO PRN (07:39)
[2022-02-04] MEDS ORDERED: Baclofen 10 MG TAB PO PRN (07:48)
[2022-02-04] MEDS: chlorproMAZINE HCl 50 MG/2 ML AMP IM SCH ×3 (10:18→20:29)
[2022-02-04] MEDS: Pantoprazole 40 MG VIAL IVP SCH (10:19)
[2022-02-04] MEDS: MAGNESIUM SULFATE IV SCH (15:30)
[2022-02-04] MEDS: FAT EMULSION IV SCH (15:30)
[2022-02-04] MEDS: [UNRECOGNIZED DRUG - OTHER] IV SCH (15:30)
[2022-02-04] MEDS: MULTIVITAMINS IV SCH (15:30)
[2022-02-04] MEDS: Morphine 4 MG/ML VIAL SLOW IVP PRN ×2 (16:05→21:07)
[2022-02-04] MEDS: Enoxaparin Sodium 40 MG/0.4 ML SYRINGE SC SCH (20:29)
[2022-02-04] MEDS: Labetalol HCl 100 MG/20 ML VIAL SLOW IVP PRN (21:04)
[2022-02-05] MEDS: Ondansetron PF 4 MG/2 ML Vial IVP SCH ×4 (03:37→21:10)
[2022-02-05] MEDS: Promethazine HCl 25 MG/ML VIAL IM PRN ×2 (06:26→19:53)
[2022-02-05] MEDS: Mometasone 100 MCG/PUFF (1 INHALER) INH SCH ×2 (07:48→18:53)
[2022-02-05] MEDS: Morphine 4 MG/ML VIAL SLOW IVP PRN ×4 (08:05→22:54)
[2022-02-05] MEDS: chlorproMAZINE HCl 50 MG/2 ML AMP IM SCH ×3 (08:06→21:10)
[2022-02-05] MEDS: Pantoprazole 40 MG VIAL IVP SCH (08:07)
[2022-02-05] MEDS: [UNRECOGNIZED DRUG - OTHER] IV SCH (15:08)
[2022-02-05] MEDS: MAGNESIUM SULFATE IV SCH (15:08)
[2022-02-05] MEDS: MULTIVITAMINS IV SCH (15:08)
[2022-02-05] MEDS: Enoxaparin Sodium 40 MG/0.4 ML SYRINGE SC SCH (21:10)
[2022-02-05] MEDS: Labetalol HCl 100 MG/20 ML VIAL SLOW IVP PRN (21:34)
[2022-02-05] MEDS: D5 1/2 NS w/20 mEq KCL 1,000 ML IV SCH (22:54)
[2022-02-06] MEDS: Ondansetron PF 4 MG/2 ML Vial IVP SCH ×4 (03:39→20:10)
[2022-02-06] MEDS: Mometasone 100 MCG/PUFF (1 INHALER) INH SCH ×2 (07:49→19:20)
[2022-02-06] MEDS: chlorproMAZINE HCl 50 MG/2 ML AMP IM SCH ×3 (08:30→20:10)
[2022-02-06] MEDS: Pantoprazole 40 MG VIAL IVP SCH (08:31)
[2022-02-06] MEDS: Ketorolac Tromethamine 30 MG/ML VIAL IVP PRN (08:36)
[2022-02-06] MEDS: Morphine 4 MG/ML VIAL SLOW IVP PRN ×3 (10:58→20:14)
[2022-02-06] MEDS: Promethazine HCl 25 MG/ML VIAL IM PRN (11:41)
[2022-02-06] MEDS: Labetalol HCl 100 MG/20 ML VIAL SLOW IVP PRN (16:02)
[2022-02-06] MEDS: MAGNESIUM SULFATE IV SCH (16:19)
[2022-02-06] MEDS: MULTIVITAMINS IV SCH (16:19)
[2022-02-06] MEDS: [UNRECOGNIZED DRUG - OTHER] IV SCH (16:19)
[2022-02-06] MEDS: Enoxaparin Sodium 40 MG/0.4 ML SYRINGE SC SCH (20:14)
[2022-02-07] MEDS: Ondansetron PF 4 MG/2 ML Vial IVP SCH ×3 (02:59→13:50)
[2022-02-07] MEDS: Morphine 4 MG/ML VIAL SLOW IVP PRN ×4 (04:58→20:31)
[2022-02-07] MEDS: Mometasone 100 MCG/PUFF (1 INHALER) INH SCH ×2 (06:38→18:09)
[2022-02-07 07:09] LABS: #Eosinphils 0.2 thou/uL (0.0-0.7); #Monocytes 0.4 thou/uL (0.11-0.59); #Neutrophils 3.8 thou/uL (1.40-6.50); %Basophils 0.7 % (0.0-1.0); %Eosinophils 2.9 % (0.0-10.0); %Lymphocytes 18.5 % (21.0-51.0); %Monocytes 8.2 % (0.0-10.0); %Neutrophils 69.7 % (42.0-75.0); Hemoglobin 10.8 g/dL (12.0-16.0); Mean Corpuscular HGB CONC 33.4 g/dL (32.0-36.0); Mean Corpuscular Hemoglobin 31.5 pg (27.0-31.0); Mean Corpuscular Volume 94.3 fl (78.0-98.0); Mean Platelet Volume 8.5 fL (7.4-10.4); Platelet Count 224 10x3/uL (130-400); RBC Distribution Width 12.8 % (11.5-14.5); Red Blood Cell (RBC) Count 3.44 mill/uL (4.20-5.40); White Blood Cell (WBC) Count 5.4 10x3/uL (4.8-10.8)
[2022-02-07 07:21] LABS: Anion Gap 11 mmol/L (10-20); BUN (Urea Nitrogen) 11 mg/dL (7.0-18.7); Calc. Creatinine Clearance 210 mL/min (70-130); Calcium 8.1 mg/dL (7.8-10.44); Carbon Dioxide 24 mmol/L (22-29); Chloride 104 mmol/L (98-107); Estimated GFR 122; Glucose 132 mg/dL (70-105); Magnesium 1.9 mg/dL (1.6-2.6); Phosphorus 4.3 mg/dL (2.3-4.7); Potassium 4.2 mmol/L (3.5-5.1); Sodium 135 mmol/L (136-145)
[2022-02-07] MEDS: Pantoprazole 40 MG VIAL IVP SCH (08:53)
[2022-02-07] MEDS: chlorproMAZINE HCl 50 MG/2 ML AMP IM SCH ×2 (08:53→13:50)
[2022-02-07] MEDS: FAT EMULSION IV SCH (15:01)
[2022-02-07] MEDS: MULTIVITAMINS IV SCH (15:01)
[2022-02-07] MEDS: [UNRECOGNIZED DRUG - OTHER] IV SCH (15:01)
[2022-02-07] MEDS: MAGNESIUM SULFATE IV SCH (15:01)
[2022-02-07] MEDS ORDERED: Baclofen 10 MG TAB PO SCH (16:45)
[2022-02-07] MEDS: Ondansetron ODT 4 MG TAB SL SCH ×2 (17:34→20:31)
[2022-02-07] MEDS: Enoxaparin Sodium 40 MG/0.4 ML SYRINGE SC SCH (20:30)
[2022-02-08] MEDS: D5 1/2 NS w/20 mEq KCL 1,000 ML IV SCH (05:50)
[2022-02-08] MEDS: Mometasone 100 MCG/PUFF (1 INHALER) INH SCH ×2 (07:52→18:55)
[2022-02-08] MEDS: Pantoprazole 40 MG VIAL IVP SCH (08:29)
[2022-02-08] MEDS: Ondansetron ODT 4 MG TAB SL SCH ×4 (08:29→20:53)
[2022-02-08] MEDS: Baclofen 10 MG TAB PO SCH ×3 (08:30→20:53)
[2022-02-08] MEDS: HYDROcodone/Acetaminophen 7.5/325 mg Tablet PO PRN (10:28)
[2022-02-08] MEDS: MAGNESIUM SULFATE IV SCH (13:23)
[2022-02-08] MEDS: [UNRECOGNIZED DRUG - OTHER] IV SCH (13:23)
[2022-02-08] MEDS: MULTIVITAMINS IV SCH (13:23)
[2022-02-08 16:19] LABS: Phosphorus 3.7 mg/dL (2.3-4.7); Triglycerides 52 mg/dL (Less than 150)
[2022-02-08 16:21] LABS: ALT (SGPT) 47 U/L (8-55); AST (SGOT) 17 U/L (5-34); Albumin 2.8 g/dL (3.5-5.0); Alkaline Phosphatase 148 U/L (40-110); Anion Gap 10 mmol/L (10-20); BUN (Urea Nitrogen) 9 mg/dL (7.0-18.7); Bilirubin, Total 0.4 mg/dL (0.2-1.2); Calc. Creatinine Clearance 0 mL/min (70-130); Calcium 8.3 mg/dL (7.8-10.44); Carbon Dioxide 25 mmol/L (22-29); Chloride 102 mmol/L (98-107); Estimated GFR 120; Globulin 3.3 g/dL (2.4-3.5); Glucose 133 mg/dL (70-105); Magnesium 1.8 mg/dL (1.6-2.6); Potassium 4.3 mmol/L (3.5-5.1); Protein, Total 6.1 g/dL (6.0-8.3); Sodium 133 mmol/L (136-145)
[2022-02-08] MEDS: Promethazine HCl 25 MG/ML VIAL IM PRN (17:37)
[2022-02-08] MEDS: Morphine 4 MG/ML VIAL SLOW IVP PRN (17:43)
[2022-02-08] MEDS: Ketorolac Tromethamine 30 MG/ML VIAL IVP PRN (20:53)
[2022-02-08] MEDS: Enoxaparin Sodium 40 MG/0.4 ML SYRINGE SC SCH (20:55)
[2022-02-09] MEDS: Morphine 4 MG/ML VIAL SLOW IVP PRN ×3 (00:51→10:23)
[2022-02-09] MEDS: Promethazine HCl 25 MG/ML VIAL IM PRN ×2 (00:52→10:20)
[2022-02-09] MEDS: Labetalol HCl 100 MG/20 ML VIAL SLOW IVP PRN (00:53)
[2022-02-09] MEDS: D5 1/2 NS w/20 mEq KCL 1,000 ML IV SCH (04:25)
[2022-02-09] MEDS: Mometasone 100 MCG/PUFF (1 INHALER) INH SCH ×2 (06:56→18:46)
[2022-02-09] MEDS: Pantoprazole 40 MG VIAL IVP SCH (07:51)
[2022-02-09] MEDS: Baclofen 10 MG TAB PO SCH ×3 (08:04→20:24)
[2022-02-09] MEDS: Ondansetron ODT 4 MG TAB SL SCH ×3 (08:04→16:52)
[2022-02-09] MEDS ORDERED: Bupivacaine/Epinephrine 0.25% 30 ML VIAL ONE (12:59)
[2022-02-09] MEDS ORDERED: fentaNYL PF 100 MCG/2 ML SYRINGE ONE (13:20)
[2022-02-09] MEDS ORDERED: SUGAMMADEX SODIUM 200 MG/2 ML VIAL ONE (13:28)
[2022-02-09] MEDS ORDERED: HYDROmorphone 2 MG/ML VIAL ONE (13:28)
[2022-02-09] MEDS ORDERED: Levofloxacin 500 mg/D5W 100 ml Premix Bag ONE (13:31)
[2022-02-09] MEDS ORDERED: Ondansetron PF 4 MG/2 ML Vial ONE (13:59)
[2022-02-09] MEDS ORDERED: Ketorolac Tromethamine 30 MG/ML VIAL ONE (13:59)
[2022-02-09] MEDS ORDERED: Dexamethasone 20 MG/5 ML VIAL ONE (13:59)
[2022-02-09] MEDS ORDERED: Rocuronium Bromide 10 MG/ML (10ML VIAL) ONE (13:59)
[2022-02-09] MEDS ORDERED: PROPOFOL 200 MG/20 ML VIAL ONE (13:59)
[2022-02-09] MEDS ORDERED: Phenylephrine 10 MG/ML VIAL ONE (13:59)
[2022-02-09] MEDS ORDERED: FENTANYL 50 MCG/ML 1 ML VIAL ONE ×5 (15:40→16:56)
[2022-02-09] MEDS ORDERED: Metoprolol Tartrate 5 MG/5 ML VIAL ONE (15:57)
[2022-02-09] MEDS ORDERED: diphenhydrAMINE 25 MG CAP PO PRN (17:03)
[2022-02-09] MEDS ORDERED: Zolpidem Tartrate 5 MG TAB PO PRN (17:03)
[2022-02-09] MEDS ORDERED: diphenhydrAMINE 50 MG/ML VIAL IM PRN (17:03)
[2022-02-09] MEDS ORDERED: Naloxone HCl 0.4 mg/ml Vial IV PRN (17:03)
[2022-02-09] MEDS ORDERED: HYDROmorphone 10 mg/100 ml CADD IVPB PRN (17:03)
[2022-02-09] MEDS ORDERED: Communication Order-Pharmacy FS SCH (17:15)
[2022-02-09] MEDS: [UNRECOGNIZED DRUG - OTHER] IV SCH (18:20)
[2022-02-09] MEDS: MAGNESIUM SULFATE IV SCH (18:20)
[2022-02-09] MEDS: FAT EMULSION IV SCH (18:20)
[2022-02-09] MEDS: MULTIVITAMINS IV SCH (18:20)
[2022-02-09] MEDS: Enoxaparin Sodium 40 MG/0.4 ML SYRINGE SC SCH (20:23)
[2022-02-10 05:37] LABS: #Lymphocytes 0.9 thou/uL (1.20-3.40); #Monocytes 0.5 thou/uL (0.11-0.59); #Neutrophils 6.8 thou/uL (1.40-6.50); %Basophils 0.2 % (0.0-1.0); %Eosinophils 0.2 % (0.0-10.0); %Lymphocytes 11.5 % (21.0-51.0); %Monocytes 5.6 % (0.0-10.0); %Neutrophils 82.6 % (42.0-75.0); Hemoglobin 11.5 g/dL (12.0-16.0); Mean Corpuscular HGB CONC 31.8 g/dL (32.0-36.0); Mean Corpuscular Hemoglobin 30.1 pg (27.0-31.0); Mean Corpuscular Volume 94.9 fl (78.0-98.0); Mean Platelet Volume 8.3 fL (7.4-10.4); Platelet Count 327 10x3/uL (130-400); RBC Distribution Width 12.9 % (11.5-14.5); Red Blood Cell (RBC) Count 3.81 mill/uL (4.20-5.40); White Blood Cell (WBC) Count 8.2 10x3/uL (4.8-10.8)
[2022-02-10 05:54] LABS: Anion Gap 10 mmol/L (10-20); BUN (Urea Nitrogen) 9 mg/dL (7.0-18.7); Calc. Creatinine Clearance 202 mL/min (70-130); Calcium 8.7 mg/dL (7.8-10.44); Carbon Dioxide 28 mmol/L (22-29); Chloride 103 mmol/L (98-107); Estimated GFR 120; Glucose 98 mg/dL (70-105); Potassium 4.1 mmol/L (3.5-5.1); Sodium 137 mmol/L (136-145)
[2022-02-10] MEDS: Mometasone 100 MCG/PUFF (1 INHALER) INH SCH ×2 (07:09→18:12)
[2022-02-10] MEDS: Pantoprazole 40 MG VIAL IVP SCH (09:29)
[2022-02-10] MEDS: HYDROmorphone/PF 10 MG in Sodium Chloride 0.9% 99 ML IVPB PRN (13:10)
[2022-02-10] MEDS: [UNRECOGNIZED DRUG - OTHER] IV SCH (15:49)
[2022-02-10] MEDS: MULTIVITAMINS IV SCH (15:49)
[2022-02-10] MEDS: MAGNESIUM SULFATE IV SCH (15:49)
[2022-02-10] MEDS: Enoxaparin Sodium 40 MG/0.4 ML SYRINGE SC SCH (20:09)
[2022-02-11] MEDS: Ondansetron PF 4 MG/2 ML Vial IVP PRN ×3 (04:58→18:21)
[2022-02-11 05:07] LABS: Magnesium 1.9 mg/dL (1.6-2.6)
[2022-02-11] MEDS: Mometasone 100 MCG/PUFF (1 INHALER) INH SCH ×2 (06:51→21:28)
[2022-02-11] MEDS: Pantoprazole 40 MG VIAL IVP SCH (07:56)
[2022-02-11] MEDS: Promethazine HCl 25 MG/ML VIAL IM PRN ×3 (09:16→20:30)
[2022-02-11] MEDS: D5 1/2 NS w/20 mEq KCL 1,000 ML IV SCH (09:19)
[2022-02-11] MEDS: HYDROmorphone/PF 10 MG in Sodium Chloride 0.9% 99 ML IVPB PRN (09:20)
[2022-02-11] MEDS: [UNRECOGNIZED DRUG - OTHER] IV SCH (14:01)
[2022-02-11] MEDS: FAT EMULSION IV SCH (14:01)
[2022-02-11] MEDS: MAGNESIUM SULFATE IV SCH (14:01)
[2022-02-11] MEDS: MULTIVITAMINS IV SCH (14:01)
[2022-02-11] MEDS: Enoxaparin Sodium 40 MG/0.4 ML SYRINGE SC SCH (20:30)
[2022-02-12] MEDS: diphenhydrAMINE 50 MG/ML VIAL IVP PRN (00:06)
[2022-02-12] MEDS: Ondansetron PF 4 MG/2 ML Vial IVP PRN ×2 (01:55→08:36)
[2022-02-12] MEDS: Promethazine HCl 25 MG/ML VIAL IM PRN ×3 (05:09→17:49)
[2022-02-12] MEDS: Mometasone 100 MCG/PUFF (1 INHALER) INH SCH ×2 (07:24→19:38)
[2022-02-12] MEDS: Pantoprazole 40 MG VIAL IVP SCH (08:36)
[2022-02-12] MEDS ORDERED: Fentanyl 100 MCG/2 ML VIAL SLOW IVP PRN (09:46)
[2022-02-12] MEDS: Scopolamine 1.5 mg/72 hour Patch TD SCH (10:12)
[2022-02-12] MEDS: FENTANYL 50 MCG/ML 1 ML VIAL SLOW IVP PRN ×3 (12:35→21:12)
[2022-02-12] MEDS: Metoclopramide HCl 10 MG/2 ML VIAL IVP SCH ×2 (12:41→21:11)
[2022-02-12] MEDS: MAGNESIUM SULFATE IV SCH (14:46)
[2022-02-12] MEDS: [UNRECOGNIZED DRUG - OTHER] IV SCH (14:46)
[2022-02-12] MEDS: MULTIVITAMINS IV SCH (14:46)
[2022-02-12] MEDS: Enoxaparin Sodium 40 MG/0.4 ML SYRINGE SC SCH (21:17)
[2022-02-12] MEDS: Promethazine HCl 12.5 MG in Sodium Chloride 0.9% 50 ML IVPB PRN (21:46)
[2022-02-13] MEDS: FENTANYL 50 MCG/ML 1 ML VIAL SLOW IVP PRN ×7 (01:07→23:39)
[2022-02-13] MEDS: Ondansetron PF 4 MG/2 ML Vial IVP PRN ×4 (01:07→21:45)
[2022-02-13] MEDS: Promethazine HCl 12.5 MG in Sodium Chloride 0.9% 50 ML IVPB PRN ×3 (03:15→20:37)
[2022-02-13] MEDS: diphenhydrAMINE 50 MG/ML VIAL IVP PRN ×2 (05:06→23:39)
[2022-02-13] MEDS: Mometasone 100 MCG/PUFF (1 INHALER) INH SCH ×2 (06:56→20:51)
[2022-02-13 07:26] LABS: #Lymphocytes 1.1 thou/uL (1.20-3.40); #Monocytes 0.6 thou/uL (0.11-0.59); #Neutrophils 5.9 thou/uL (1.40-6.50); %Basophils 0.1 % (0.0-1.0); %Eosinophils 0.3 % (0.0-10.0); %Lymphocytes 14.1 % (21.0-51.0); %Monocytes 7.3 % (0.0-10.0); %Neutrophils 78.2 % (42.0-75.0); Hemoglobin 10.9 g/dL (12.0-16.0); Mean Corpuscular HGB CONC 31.6 g/dL (32.0-36.0); Mean Corpuscular Hemoglobin 29.8 pg (27.0-31.0); Mean Corpuscular Volume 94.4 fl (78.0-98.0); Mean Platelet Volume 8.4 fL (7.4-10.4); Platelet Count 282 10x3/uL (130-400); RBC Distribution Width 12.8 % (11.5-14.5); Red Blood Cell (RBC) Count 3.67 mill/uL (4.20-5.40); White Blood Cell (WBC) Count 7.6 10x3/uL (4.8-10.8)
[2022-02-13 07:40] LABS: Anion Gap 12 mmol/L (10-20); BUN (Urea Nitrogen) 9 mg/dL (7.0-18.7); Calc. Creatinine Clearance 207 mL/min (70-130); Calcium 8.4 mg/dL (7.8-10.44); Carbon Dioxide 25 mmol/L (22-29); Chloride 105 mmol/L (98-107); Estimated GFR 120; Glucose 133 mg/dL (70-105); Sodium 138 mmol/L (136-145)
[2022-02-13] MEDS: Pantoprazole 40 MG VIAL IVP SCH ×2 (08:03→20:11)
[2022-02-13] MEDS: Metoclopramide HCl 10 MG/2 ML VIAL IVP SCH ×3 (08:03→20:12)
[2022-02-13] MEDS: D5 1/2 NS w/20 mEq KCL 1,000 ML IV SCH (10:26)
[2022-02-13] MEDS ORDERED: Cosyntropin 250 MCG VIAL SLOW IVP SCH (15:00)
[2022-02-13] MEDS: MULTIVITAMINS IV SCH (15:42)
[2022-02-13] MEDS: [UNRECOGNIZED DRUG - OTHER] IV SCH (15:42)
[2022-02-13] MEDS: MAGNESIUM SULFATE IV SCH (15:42)
[2022-02-13] MEDS: Enoxaparin Sodium 40 MG/0.4 ML SYRINGE SC SCH (20:36)
[2022-02-14] MEDS: Promethazine HCl 12.5 MG in Sodium Chloride 0.9% 50 ML IVPB PRN ×4 (02:00→21:07)
[2022-02-14] MEDS: FENTANYL 50 MCG/ML 1 ML VIAL SLOW IVP PRN ×3 (04:14→20:43)
[2022-02-14] MEDS: Ondansetron PF 4 MG/2 ML Vial IVP PRN ×3 (04:14→23:10)
[2022-02-14] MEDS: Mometasone 100 MCG/PUFF (1 INHALER) INH SCH ×2 (06:18→18:42)
[2022-02-14] MEDS: Pantoprazole 40 MG VIAL IVP SCH ×2 (08:32→20:43)
[2022-02-14] MEDS: Metoclopramide HCl 10 MG/2 ML VIAL IVP SCH ×3 (08:32→20:43)
[2022-02-14] MEDS ORDERED: PROPOFOL 200 MG/20 ML VIAL ONE (10:26)
[2022-02-14] MEDS ORDERED: Succinylcholine 200 MG/10 ml SYRINGE FS ONE (10:26)
[2022-02-14] MEDS ORDERED: Dexamethasone 20 MG/5 ML VIAL ONE (10:26)
[2022-02-14] MEDS ORDERED: Phenylephrine 10 MG/ML VIAL ONE (10:26)
[2022-02-14] MEDS ORDERED: Ondansetron PF 4 MG/2 ML Vial ONE (10:26)
[2022-02-14] MEDS ORDERED: Rocuronium Bromide 10 MG/ML (10ML VIAL) ONE (10:26)
[2022-02-14] MEDS ORDERED: Promethazine HCl 25 MG/ML VIAL IM PRN (11:02)
[2022-02-14] MEDS ORDERED: Ondansetron HCl/PF 4 MG/2 ML Vial IVP PRN (11:02)
[2022-02-14] MEDS ORDERED: Promethazine HCl 25 MG/ML VIAL IVPB PRN (11:02)
[2022-02-14] MEDS ORDERED: Promethazine HCl 25 MG/ML VIAL ONE (11:05)
[2022-02-14] MEDS ORDERED: MAGNESIUM SULFATE IV SCH (17:00)
[2022-02-14] MEDS ORDERED: FAT EMULSION IV SCH (17:00)
[2022-02-14] MEDS ORDERED: MULTIVITAMINS IV SCH (17:00)
[2022-02-14] MEDS ORDERED: [UNRECOGNIZED DRUG - OTHER] IV SCH (17:00)
[2022-02-14] MEDS: [UNRECOGNIZED DRUG - OTHER] IV SCH (18:12)
[2022-02-14] MEDS: MAGNESIUM SULFATE IV SCH (18:12)
[2022-02-14] MEDS: FAT EMULSION IV SCH (18:12)
[2022-02-14] MEDS: MULTIVITAMINS IV SCH (18:12)
[2022-02-14] MEDS: Enoxaparin Sodium 40 MG/0.4 ML SYRINGE SC SCH (20:43)
[2022-02-14] MEDS: D5 1/2 NS w/20 mEq KCL 1,000 ML IV SCH (20:46)
[2022-02-14] MEDS: diphenhydrAMINE 50 MG/ML VIAL IVP PRN (23:45)
[2022-02-15] MEDS ORDERED: Cosyntropin 250 MCG VIAL SLOW IVP SCH (03:00)
[2022-02-15] MEDS: Promethazine HCl 12.5 MG in Sodium Chloride 0.9% 50 ML IVPB PRN ×4 (03:00→19:57)
[2022-02-15] MEDS: Ondansetron PF 4 MG/2 ML Vial IVP PRN ×5 (05:15→23:31)
[2022-02-15] MEDS: FENTANYL 50 MCG/ML 1 ML VIAL SLOW IVP PRN ×3 (05:15→20:04)
[2022-02-15] MEDS: Mometasone 100 MCG/PUFF (1 INHALER) INH SCH ×2 (08:17→18:58)
[2022-02-15] MEDS: Scopolamine 1.5 mg/72 hour Patch TD SCH (08:20)
[2022-02-15] MEDS: Pantoprazole 40 MG VIAL IVP SCH ×2 (08:21→20:04)
[2022-02-15] MEDS: Metoclopramide HCl 10 MG/2 ML VIAL IVP SCH ×3 (08:31→19:59)
[2022-02-15] MEDS ORDERED: HYDROcodone/Acetaminophen 7.5/325 mg Tablet PO PRN (11:10)
[2022-02-15] MEDS: [UNRECOGNIZED DRUG - OTHER] IV SCH (14:24)
[2022-02-15] MEDS: MULTIVITAMINS IV SCH (14:24)
[2022-02-15] MEDS: MAGNESIUM SULFATE IV SCH (14:24)
[2022-02-15] MEDS: Enoxaparin Sodium 40 MG/0.4 ML SYRINGE SC SCH (20:04)
[2022-02-15] MEDS: diphenhydrAMINE 50 MG/ML VIAL IVP PRN (22:42)
[2022-02-16] MEDS: Promethazine HCl 12.5 MG in Sodium Chloride 0.9% 50 ML IVPB PRN (03:43)
[2022-02-16 06:02] LABS: #Basophils 0.1 thou/uL (0.0-0.2); #Eosinphils 0.1 thou/uL (0.0-0.7); #Lymphocytes 1.6 thou/uL (1.20-3.40); #Monocytes 0.7 thou/uL (0.11-0.59); #Neutrophils 6.6 thou/uL (1.40-6.50); %Basophils 1.3 % (0.0-1.0); %Eosinophils 0.6 % (0.0-10.0); %Lymphocytes 18.1 % (21.0-51.0); %Monocytes 7.6 % (0.0-10.0); %Neutrophils 72.5 % (42.0-75.0); Hemoglobin 12.2 g/dL (12.0-16.0); Mean Corpuscular HGB CONC 32.2 g/dL (32.0-36.0); Mean Corpuscular Hemoglobin 30.1 pg (27.0-31.0); Mean Corpuscular Volume 93.6 fl (78.0-98.0); Mean Platelet Volume 8.3 fL (7.4-10.4); Platelet Count 271 10x3/uL (130-400); RBC Distribution Width 12.9 % (11.5-14.5); Red Blood Cell (RBC) Count 4.06 mill/uL (4.20-5.40)
[2022-02-16 06:22] LABS: ALT (SGPT) 99 U/L (8-55); AST (SGOT) 38 U/L (5-34); Albumin 3.5 g/dL (3.5-5.0); Alkaline Phosphatase 148 U/L (40-110); Anion Gap 14 mmol/L (10-20); BUN (Urea Nitrogen) 10 mg/dL (7.0-18.7); Bilirubin, Total 0.5 mg/dL (0.2-1.2); Calc. Creatinine Clearance 186 mL/min (70-130); Calcium 8.5 mg/dL (7.8-10.44); Carbon Dioxide 25 mmol/L (22-29); Chloride 103 mmol/L (98-107); Estimated GFR 118; Glucose 110 mg/dL (70-105); Magnesium 2.2 mg/dL (1.6-2.6); Phosphorus 4.4 mg/dL (2.3-4.7); Potassium 3.6 mmol/L (3.5-5.1); Protein, Total 6.5 g/dL (6.0-8.3); Sodium 138 mmol/L (136-145)
[2022-02-16] MEDS: Mometasone 100 MCG/PUFF (1 INHALER) INH SCH ×2 (07:12→19:13)
[2022-02-16] MEDS: Metoclopramide HCl 10 MG/2 ML VIAL IVP SCH ×3 (08:18→20:52)
[2022-02-16] MEDS: Pantoprazole 40 MG VIAL IVP SCH ×2 (08:18→20:53)
[2022-02-16] MEDS: FENTANYL 50 MCG/ML 1 ML VIAL SLOW IVP PRN ×4 (08:26→20:51)
[2022-02-16] MEDS: Ondansetron PF 4 MG/2 ML Vial IVP PRN ×2 (11:13→18:02)
[2022-02-16] MEDS ORDERED: FAT EMULSION IV SCH (14:00)
[2022-02-16] MEDS ORDERED: [UNRECOGNIZED DRUG - OTHER] IV SCH (14:00)
[2022-02-16] MEDS ORDERED: MULTIVITAMINS IV SCH (14:00)
[2022-02-16] MEDS ORDERED: MAGNESIUM SULFATE IV SCH (14:00)
[2022-02-16] MEDS: D5 1/2 NS w/20 mEq KCL 1,000 ML IV SCH (20:41)
[2022-02-16] MEDS: Enoxaparin Sodium 40 MG/0.4 ML SYRINGE SC SCH (20:55)
[2022-02-17] MEDS: Ondansetron PF 4 MG/2 ML Vial IVP PRN ×3 (01:08→18:45)
[2022-02-17] MEDS: FENTANYL 50 MCG/ML 1 ML VIAL SLOW IVP PRN ×6 (01:09→21:37)
[2022-02-17] MEDS: Promethazine HCl 12.5 MG in Sodium Chloride 0.9% 50 ML IVPB PRN (05:19)
[2022-02-17] MEDS: Pantoprazole 40 MG VIAL IVP SCH ×2 (08:13→21:44)
[2022-02-17] MEDS: Metoclopramide HCl 10 MG/2 ML VIAL IVP SCH ×3 (08:14→21:41)
[2022-02-17] MEDS: Mometasone 100 MCG/PUFF (1 INHALER) INH SCH ×2 (10:24→19:09)
[2022-02-17] MEDS: [UNRECOGNIZED DRUG - OTHER] IV SCH (14:43)
[2022-02-17] MEDS: MULTIVITAMINS IV SCH (14:43)
[2022-02-17] MEDS: MAGNESIUM SULFATE IV SCH (14:43)
[2022-02-17] MEDS: D5 1/2 NS w/20 mEq KCL 1,000 ML IV SCH (21:42)
[2022-02-17] MEDS: Enoxaparin Sodium 40 MG/0.4 ML SYRINGE SC SCH (21:44)
[2022-02-18] MEDS: Ondansetron PF 4 MG/2 ML Vial IVP PRN ×2 (06:26→11:57)
[2022-02-18] MEDS: Mometasone 100 MCG/PUFF (1 INHALER) INH SCH (07:48)
[2022-02-18] MEDS: Pantoprazole 40 MG VIAL IVP SCH (08:03)
[2022-02-18] MEDS: Metoclopramide HCl 10 MG/2 ML VIAL IVP SCH ×2 (08:03→14:54)
[2022-02-18] MEDS: FENTANYL 50 MCG/ML 1 ML VIAL SLOW IVP PRN ×2 (08:03→12:32)
[2022-02-18] MEDS: Scopolamine 1.5 mg/72 hour Patch TD SCH (11:59)
[2022-02-18 15:55] VITALS: BP 129/87; TEMP 98.8
[2022-02-18 16:43] VITALS: BMI 35.1
== END 2022-02-18 17:50 | disposition home or self-care (01) | DRG 394 ==
LOC: ERS 09:27 → SURG A 14:29 → OBSVTOIN 01-18 12:41
PROVIDERS: ADMIT Surgery; ATTEND Surgery
PROC: 0D748ZZ Dilation of Esophagogastric Junction, Via Natural or Artificial Opening Endoscopic (ICD-10-PCS; principal; 2022-01-19)
PROC: 3E0336Z Introduction of Nutritional Substance into Peripheral Vein, Percutaneous Approach (ICD-10-PCS; 2022-01-21)
PROC: 02HV33Z Insertion of Infusion Device into Superior Vena Cava, Percutaneous Approach (ICD-10-PCS; 2022-01-21)
PROC: 0DP Gastrointestinal System, Removal (ICD-10-PCS; 2022-02-09)
PROC: 0DJ08ZZ Inspection of Upper Intestinal Tract, Via Natural or Artificial Opening Endoscopic (ICD-10-PCS; 2022-02-14)
DX: K95.89 Other complications of other bariatric procedure (principal); K44.0 Diaphragmatic hernia with obstruction, without gangrene; K91.0 Vomiting following gastrointestinal surgery; R13.10 Dysphagia, unspecified; K22.2 Esophageal obstruction; Z20.822 Contact with and (suspected) exposure to COVID-19; K66.0 Peritoneal adhesions (postprocedural) (postinfection)
CPT/HCPCS: 36415; 36416; 36569; 71275; 72193; 74019; 74160; 74177; 80048; 80053; 80061; 80400; 83605; 83690; 83735; 84100; 84134; 84478; 85025; 85610; 85730; 87811; 93005; 93010; 96365; 96372; 96374; 96375; 96376; C1751; C9113; G0378; J0360; J0834; J1100; J1170; J1200; J1630; J1650; J1885; J1956; J2270; J2370; J2405; J2550; J2704; J2765; J3010; J3230; J3411; J3475; J3480; J3490; Q0161; Q0162; Q9967; U0002

== ENCOUNTER 2022-03-08 10:50 | Day surgery (SDC) | payer BC ==
[2022-03-08] MEDS ORDERED: Ondansetron PF 4 MG/2 ML Vial IVP PRN (11:22)
[2022-03-08] MEDS ORDERED: Sodium Chloride 0.9% 1,000 ML IV SCH (11:30)
[2022-03-08] MEDS ORDERED: Multivitamins, Adult 10 ML, Thiamine HCl 100 MG in Sodium Chloride 0.9% 1,000 ML IV SCH (11:30)
[2022-03-08 14:03] VITALS: BP 132/72; TEMP 97.6
== END 2022-03-08 12:15 | disposition short-term general hospital (02) ==
LOC: ONC/OP 10:50
PROVIDERS: ATTEND Surgery
DX: E86.0 Dehydration (principal); Z88.0 Allergy status to penicillin
CPT/HCPCS: 96360; 99212; G0463; J3411; J7050

== ENCOUNTER 2022-03-08 12:15 | Inpatient (IN) | payer BC ==
[2022-03-08] MEDS ORDERED: Acetaminophen 325 MG TAB ONE (13:47)
[2022-03-08] MEDS ORDERED: Ondansetron PF 4 MG/2 ML Vial ONE ×2 (14:20→18:30)
[2022-03-08 14:28] LABS: BHCG - Serum Negative (NEGATIVE); Pregs Control Background? CLEAR/WHITE (CLR/WHITE); Pregs Control Bar Appear? YES (CONTROL BAR)
[2022-03-08 14:52] LABS: Hemoglobin 12.4 g/dL (12.0-16.0); Mean Corpuscular HGB CONC 34.5 g/dL (32.0-36.0); Mean Corpuscular Hemoglobin 31.2 pg (27.0-31.0); Mean Corpuscular Volume 90.2 fl (78.0-98.0); Platelet Count 99 10x3/uL (130-400); RBC Distribution Width 13.2 % (11.5-14.5); Red Blood Cell (RBC) Count 3.99 mill/uL (4.20-5.40); White Blood Cell (WBC) Count 10.5 10x3/uL (4.8-10.8)
[2022-03-08 14:53] LABS: Band 34 % (5-11); Lymphocytes 3 % (21-51); MDiff Complete? YES; Monocytes 2 % (0-10); Neutrophil 61 % (42-75); Platelet Morphology Comment Appears Decreased; Polychromasia SLIGHT = 2-3 cells (100X) (0-2/hpf); Vacuoles MODERATE
[2022-03-08 15:10] LABS: Bacteria/HPF None Seen HPF (None Seen); Bilirubin Negative (Negative); Blood, Urine 2+ (Negative); Clarity Clear (Clear); Glucose, Urine (Dipstick) Normal (Negative); Ketone, Urine Negative (Negative); Leukocyte 25 Leu/uL (Negative); Nitrite Negative (Negative); Protein, Urine (Dipstick) 70 mg/dL (Neg-Trace); Specific Gravity, Urine 1.033 (1.002-1.036); Urobilinogen 3 mg/dL (Less than 2)
[2022-03-08 15:16] LABS: ALT (SGPT) 76 U/L (8-55); AST (SGOT) 52 U/L (5-34); Albumin 2.9 g/dL (3.5-5.0); Alkaline Phosphatase 145 U/L (40-110); Anion Gap 14 mmol/L (10-20); BUN (Urea Nitrogen) 13 mg/dL (7.0-18.7); Bilirubin, Total 0.5 mg/dL (0.2-1.2); Calc. Creatinine Clearance 0 mL/min (70-130); Calcium 8.2 mg/dL (7.8-10.44); Carbon Dioxide 18 mmol/L (22-29); Chloride 102 mmol/L (98-107); Estimated GFR 118; Globulin 3.6 g/dL (2.4-3.5); Glucose 161 mg/dL (70-105); Lipase 47 U/L (8-78); Potassium 4.3 mmol/L (3.5-5.1); Protein, Total 6.5 g/dL (6.0-8.3); Sodium 130 mmol/L (136-145)
[2022-03-08] MEDS ORDERED: Cefepime 2 GM VIAL ONE (15:30)
[2022-03-08] MEDS ORDERED: Acetaminophen 325 MG TAB PO PRN (16:39)
[2022-03-08] MEDS ORDERED: Ondansetron ODT 4 MG TAB PO PRN (16:39)
[2022-03-08 17:25] LABS: Lactic Acid 1.4 mmol/L (0.5-2.2)
[2022-03-08] MEDS ORDERED: Vancomycin 1.5 GRAM/300 ML BAG 1.5 GM in Premix Bag 1 BAG IVPB SCH (18:30)
[2022-03-08] MEDS ORDERED: Vancomycin 1 GM in Premix Bag 1 BAG IVPB SCH (21:00)
[2022-03-08] MEDS: Sodium Chloride 0.9% 1,000 ML IV SCH (21:57)
[2022-03-08] MEDS ORDERED: Metoclopramide HCl 10 MG TAB ONE (22:01)
[2022-03-08] MEDS: Metoclopramide HCl 10 MG TAB PO PRN (22:05)
[2022-03-08 22:22] VITALS: BMI 33.7
[2022-03-08] MEDS: Enoxaparin Sodium 40 MG/0.4 ML SYRINGE SC SCH (22:25)
[2022-03-09] MEDS: Montelukast Sodium 10 mg Tablet PO SCH ×2 (00:06→20:03)
[2022-03-09] MEDS ORDERED: Cefepime 1 GM VIAL ONE (02:59)
[2022-03-09] MEDS ORDERED: Cefepime 1 GM in Sodium Chloride 0.9% 100 ML IVPB SCH (03:00)
[2022-03-09] MEDS: Vancomycin 1.5 GRAM/300 ML BAG 1.5 GM in Premix Bag 1 BAG IVPB SCH ×3 (03:36→18:31)
[2022-03-09] MEDS: Metoclopramide HCl 10 MG TAB PO PRN ×2 (05:19→15:42)
[2022-03-09] MEDS: Sodium Chloride 0.9% 1,000 ML IV SCH ×4 (06:09→21:40)
[2022-03-09 07:00] LABS: Albumin 2.5 g/dL (3.5-5.0)
[2022-03-09 07:01] LABS: Chloride 107 mmol/L (98-107); Potassium 4.5 mmol/L (3.5-5.1); Sodium 134 mmol/L (136-145)
[2022-03-09 07:02] LABS: Calcium 8.1 mg/dL (7.8-10.44); Glucose 67 mg/dL (70-105)
[2022-03-09 07:03] LABS: Globulin 3.5 g/dL (2.4-3.5)
[2022-03-09 07:04] LABS: Bilirubin, Total 0.6 mg/dL (0.2-1.2); Carbon Dioxide 14 mmol/L (22-29)
[2022-03-09 07:05] LABS: Alkaline Phosphatase 144 U/L (40-110)
[2022-03-09 07:06] LABS: Calc. Creatinine Clearance 201 mL/min (70-130); Estimated GFR 120
[2022-03-09 07:07] LABS: AST (SGOT) 69 U/L (5-34); BUN (Urea Nitrogen) 10 mg/dL (7.0-18.7)
[2022-03-09 07:08] LABS: ALT (SGPT) 79 U/L (8-55)
[2022-03-09 07:52] LABS: Anion Gap 18 mmol/L (10-20)
[2022-03-09] MEDS ORDERED: Pantoprazole 40 MG VIAL ONE (08:42)
[2022-03-09] MEDS ORDERED: Enoxaparin Sodium 40 MG/0.4 ML SYRINGE ONE (08:42)
[2022-03-09] MEDS: Enoxaparin Sodium 40 MG/0.4 ML SYRINGE SC SCH ×2 (08:49→20:03)
[2022-03-09] MEDS: Pantoprazole 40 MG VIAL IVP SCH (09:02)
[2022-03-09] MEDS ORDERED: Ondansetron PF 4 MG/2 ML Vial ONE (09:03)
[2022-03-09] MEDS: Ondansetron PF 4 MG/2 ML Vial IVP PRN ×3 (09:06→20:03)
[2022-03-09 09:53] LABS: Hemoglobin 11.6 g/dL (12.0-16.0); Mean Corpuscular HGB CONC 32.4 g/dL (32.0-36.0); Mean Corpuscular Hemoglobin 29.8 pg (27.0-31.0); Mean Corpuscular Volume 92.1 fl (78.0-98.0); Platelet Count 89 10x3/uL (130-400); RBC Distribution Width 12.9 % (11.5-14.5); Red Blood Cell (RBC) Count 3.89 mill/uL (4.20-5.40); White Blood Cell (WBC) Count 7.3 10x3/uL (4.8-10.8)
[2022-03-09] MEDS ORDERED: Iopamidol-370 76% 500 ML 1 ML ONE (10:03)
[2022-03-09 10:27] LABS: Band 9 % (5-11); Eosinophils 1 % (0-10); Hypochromia SLIGHT = 6-15 cells (100X) (0-5/hpf); Lymphocytes 15 % (21-51); MDiff Complete? YES; Monocytes 12 % (0-10); Neutrophil 55 % (42-75); Platelet Morphology Comment Appears Decreased; Reactive Lymphocytes 8 % (0-10)
[2022-03-09] MEDS ORDERED: Cefepime 2 GM in Sodium Chloride 0.9% 100 ML IVPB SCH (15:00)
[2022-03-09] MEDS: traMADol HCl 50 MG TAB PO PRN ×2 (15:42→21:35)
[2022-03-09 17:49] LABS: Vancomycin, Trough 18.5 ug/mL
[2022-03-10] MEDS: Sodium Chloride 0.9% 1,000 ML IV SCH ×4 (00:58→21:14)
[2022-03-10] MEDS: Metoclopramide HCl 10 MG TAB PO PRN ×2 (01:00→18:57)
[2022-03-10] MEDS: Vancomycin 1.5 GRAM/300 ML BAG 1.5 GM in Premix Bag 1 BAG IVPB SCH ×2 (01:06→10:28)
[2022-03-10 08:04] LABS: Anion Gap 14 mmol/L (10-20); BUN (Urea Nitrogen) 9 mg/dL (7.0-18.7); Calc. Creatinine Clearance 204 mL/min (70-130); Calcium 8.1 mg/dL (7.8-10.44); Carbon Dioxide 15 mmol/L (22-29); Chloride 111 mmol/L (98-107); Estimated GFR 121; Glucose 75 mg/dL (70-105); Sodium 136 mmol/L (136-145)
[2022-03-10] MEDS: Ondansetron PF 4 MG/2 ML Vial IVP PRN ×3 (08:13→23:16)
[2022-03-10] MEDS: traMADol HCl 50 MG TAB PO PRN ×3 (08:13→23:15)
[2022-03-10] MEDS: Pantoprazole 40 MG VIAL IVP SCH (08:13)
[2022-03-10] MEDS ORDERED: Iopamidol-370 76% 500 ML 1 ML ONE (10:15)
[2022-03-10] MEDS: Enoxaparin Sodium 40 MG/0.4 ML SYRINGE SC SCH (10:24)
[2022-03-10] MEDS: Montelukast Sodium 10 mg Tablet PO SCH (20:29)
[2022-03-10] MEDS: Fluticasone Propionate Nasal Spray 16 gm Bottle NASAL SCH (20:30)
[2022-03-10] MEDS: Mupirocin 2% Ointment 22 GM Tube TOP SCH (20:31)
[2022-03-10] MEDS ORDERED: Mupirocin 2% Ointment 22 GM Tube TOP SCH (21:00)
[2022-03-11] MEDS: Sodium Chloride 0.9% 1,000 ML IV SCH ×3 (03:42→18:27)
[2022-03-11 05:22] LABS: #Eosinphils 0.2 thou/uL (0.0-0.7); #Lymphocytes 1.6 thou/uL (1.20-3.40); #Monocytes 0.7 thou/uL (0.11-0.59); %Basophils 0.4 % (0.0-1.0); %Eosinophils 3.2 % (0.0-10.0); %Monocytes 8.9 % (0.0-10.0); %Neutrophils 66.6 % (42.0-75.0); Hemoglobin 9.8 g/dL (12.0-16.0); Mean Corpuscular HGB CONC 32.1 g/dL (32.0-36.0); Mean Corpuscular Volume 93.5 fl (78.0-98.0); Platelet Count 136 10x3/uL (130-400); RBC Distribution Width 12.9 % (11.5-14.5); Red Blood Cell (RBC) Count 3.25 mill/uL (4.20-5.40); White Blood Cell (WBC) Count 7.5 10x3/uL (4.8-10.8)
[2022-03-11 05:37] LABS: Vancomycin, Random 8.2 ug/mL (See Comment)
[2022-03-11 05:45] LABS: ALT (SGPT) 71 U/L (8-55); AST (SGOT) 30 U/L (5-34); Albumin 2.5 g/dL (3.5-5.0); Alkaline Phosphatase 112 U/L (40-110); Anion Gap 13 mmol/L (10-20); BUN (Urea Nitrogen) Less than 4 mg/dL (7.0-18.7); Bilirubin, Direct 0.2 mg/dL (0.1-0.3); Bilirubin, Total 0.4 mg/dL (0.2-1.2); Calc. Creatinine Clearance 208 mL/min (70-130); Carbon Dioxide 19 mmol/L (22-29); Chloride 109 mmol/L (98-107); Estimated GFR 121; Glucose 79 mg/dL (70-105); Potassium 3.6 mmol/L (3.5-5.1); Sodium 137 mmol/L (136-145)
[2022-03-11] MEDS ORDERED: Vancomycin 1.5 GRAM/300 ML BAG 1.5 GM in Premix Bag 1 BAG IVPB SCH (06:00)
[2022-03-11] MEDS: Fluticasone Propionate Nasal Spray 16 gm Bottle NASAL SCH ×2 (08:03→20:01)
[2022-03-11] MEDS: Mupirocin 2% Ointment 22 GM Tube TOP SCH ×3 (08:03→20:02)
[2022-03-11] MEDS: Ondansetron PF 4 MG/2 ML Vial IVP PRN ×3 (08:04→21:23)
[2022-03-11] MEDS: Pantoprazole 40 MG VIAL IVP SCH (08:06)
[2022-03-11] MEDS: traMADol HCl 50 MG TAB PO PRN ×3 (08:10→21:29)
[2022-03-11] MEDS ORDERED: Amlodipine 5 MG TAB PO SCH (09:15)
[2022-03-11] MEDS ORDERED: Cephalexin 250 MG CAP PO SCH (11:00)
[2022-03-11] MEDS: Metoclopramide HCl 10 MG TAB PO PRN ×2 (12:39→20:02)
[2022-03-11] MEDS: Cephalexin 250 MG CAP PO SCH ×2 (15:56→20:01)
[2022-03-11] MEDS: Montelukast Sodium 10 mg Tablet PO SCH (20:01)
[2022-03-11] MEDS: valACYclovir 500 MG TAB PO SCH (20:02)
[2022-03-12] MEDS: Sodium Chloride 0.9% 1,000 ML IV SCH (01:22)
[2022-03-12] MEDS: Ondansetron PF 4 MG/2 ML Vial IVP PRN (04:58)
[2022-03-12] MEDS: traMADol HCl 50 MG TAB PO PRN (05:52)
[2022-03-12] MEDS: Metoclopramide HCl 10 MG TAB PO PRN (05:52)
[2022-03-12 06:05] LABS: #Eosinphils 0.2 thou/uL (0.0-0.7); #Monocytes 0.6 thou/uL (0.11-0.59); #Neutrophils 6.1 thou/uL (1.40-6.50); %Basophils 0.2 % (0.0-1.0); %Eosinophils 1.9 % (0.0-10.0); %Lymphocytes 22.9 % (21.0-51.0); %Monocytes 6.8 % (0.0-10.0); %Neutrophils 68.2 % (42.0-75.0); Hemoglobin 11.9 g/dL (12.0-16.0); Mean Corpuscular HGB CONC 32.4 g/dL (32.0-36.0); Mean Corpuscular Hemoglobin 30.1 pg (27.0-31.0); Mean Corpuscular Volume 92.9 fl (78.0-98.0); Mean Platelet Volume 8.6 fL (7.4-10.4); Platelet Count 198 10x3/uL (130-400); RBC Distribution Width 13.2 % (11.5-14.5); Red Blood Cell (RBC) Count 3.94 mill/uL (4.20-5.40); White Blood Cell (WBC) Count 8.9 10x3/uL (4.8-10.8)
[2022-03-12 06:32] LABS: Anion Gap 13 mmol/L (10-20); BUN (Urea Nitrogen) Less than 4 mg/dL (7.0-18.7); Calc. Creatinine Clearance 182 mL/min (70-130); Calcium 8.7 mg/dL (7.8-10.44); Carbon Dioxide 16 mmol/L (22-29); Estimated GFR 117; Glucose 96 mg/dL (70-105); Potassium 3.3 mmol/L (3.5-5.1)
[2022-03-12 06:49] LABS: ALT (SGPT) 73 U/L (8-55); AST (SGOT) 28 U/L (5-34); Alkaline Phosphatase 143 U/L (40-110); Bilirubin, Direct 0.2 mg/dL (0.1-0.3); Bilirubin, Total 0.4 mg/dL (0.2-1.2); Protein, Total 6.4 g/dL (6.0-8.3)
[2022-03-12 06:50] LABS: Chloride 110 mmol/L (98-107); Sodium 136 mmol/L (136-145)
[2022-03-12] MEDS: valACYclovir 500 MG TAB PO SCH (08:42)
[2022-03-12] MEDS: Pantoprazole 40 MG VIAL IVP SCH (08:43)
[2022-03-12] MEDS: Cephalexin 250 MG CAP PO SCH (08:43)
[2022-03-12] MEDS: Fluticasone Propionate Nasal Spray 16 gm Bottle NASAL SCH (08:43)
[2022-03-12] MEDS: Mupirocin 2% Ointment 22 GM Tube TOP SCH (08:43)
[2022-03-12 08:52] VITALS: BP 141/89; TEMP 98.3
[2022-03-12] MEDS ORDERED: Metoprolol Tartrate 25 MG TAB PO SCH ×2 (09:00)
[2022-03-12] MEDS ORDERED: Amlodipine 5 MG TAB PO SCH (09:00)
[2022-03-12] MEDS ORDERED: Potassium Chloride 20 MEQ TAB PO SCH (12:15)
== END 2022-03-12 12:37 | disposition home or self-care (01) | DRG 314 ==
LOC: ERS 12:15 → ERHOLD 16:37 → T4-A 03-09 12:24
PROVIDERS: ADMIT Internal Medicine; ATTEND Internal Medicine
DX: T80.211A Bloodstream infection due to central venous catheter, initial encounter (principal); A41.1 Sepsis due to other specified staphylococcus; E87.1 Hypo-osmolality and hyponatremia; Y84.8 Other medical procedures as the cause of abnormal reaction of the patient, or of later complication, without mention of misadventure at the time of the procedure; Z20.822 Contact with and (suspected) exposure to COVID-19; I10 Essential (primary) hypertension; E87.6 Hypokalemia; E88.09 Other disorders of plasma-protein metabolism, not elsewhere classified; R94.5 Abnormal results of liver function studies; Z96.641 Presence of right artificial hip joint; J45.909 Unspecified asthma, uncomplicated; E86.9 Volume depletion, unspecified; R13.10 Dysphagia, unspecified; Z88.0 Allergy status to penicillin; Z90.49 Acquired absence of other specified parts of digestive tract; Z98.51 Tubal ligation status; Z79.899 Other long term (current) drug therapy; Z98.84 Bariatric surgery status
CPT/HCPCS: 36415; 71045; 71275; 74177; 80048; 80053; 80076; 80202; 81003; 81015; 83605; 83690; 83880; 84484; 84703; 85025; 85379; 87040; 87070; 87077; 87081; 87086; 87149; 87186; 87205; 87324; 87449; 87804; 93005; 94760; 96360; 96361; 96365; 96366; 96375; 96376; 99212; C9113; G0463; J0692; J1650; J2405; J3370; J3411; J3490; J7050; Q0162; Q9967; U0003; U0005

== ENCOUNTER 2022-09-01 10:01 | Outpatient (CLI) | payer BC | END 2022-09-01 10:02 | disposition home or self-care (01) | LOC: SCSRAD 10:01 | PROVIDERS: ATTEND Nurse Practitioner Family | DX: R60.0 Localized edema (principal) | CPT/HCPCS: 71046 ==

== ENCOUNTER 2022-09-21 15:53 | Outpatient (CLI) | payer BC | END 2022-09-21 15:54 | disposition home or self-care (01) | LOC: ULT 15:53 | PROVIDERS: ATTEND Nurse Practitioner Family | DX: R60.0 Localized edema (principal); I70.203 Unspecified atherosclerosis of native arteries of extremities, bilateral legs | CPT/HCPCS: 93923 ==

== ENCOUNTER 2022-10-20 10:26 | Inpatient (IN) | payer BC ==
[2022-10-20] MEDS ORDERED: Ondansetron PF 4 MG/2 ML Vial ONE ×2 (10:44→16:18)
[2022-10-20 11:03] LABS: #Monocytes 0.1 thou/uL (0.11-0.59); #Neutrophils 10.3 thou/uL (1.40-6.50); %Basophils 0.2 % (0.0-1.0); %Lymphocytes 4.1 % (21.0-51.0); %Monocytes 0.9 % (0.0-10.0); %Neutrophils 94.5 % (42.0-75.0); Hematocrit 38.6 % (36.0-47.0); Hemoglobin 12.6 g/dL (12.0-16.0); Mean Corpuscular HGB CONC 32.6 g/dL (32.0-36.0); Mean Corpuscular Hemoglobin 28.1 pg (27.0-31.0); Mean Corpuscular Volume 86.2 fl (78.0-98.0); Mean Platelet Volume 11.1 fL (7.4-10.4); Platelet Count 301 10x3/uL (130-400); RBC Distribution Width 13.3 % (11.5-14.5); Red Blood Cell (RBC) Count 4.48 mill/uL (4.20-5.40); White Blood Cell (WBC) Count 10.9 10x3/uL (4.8-10.8)
[2022-10-20] MEDS ORDERED: Metoclopramide HCl 10 MG/2 ML VIAL ONE (11:09)
[2022-10-20] MEDS ORDERED: Pantoprazole 40 MG VIAL ONE (11:09)
[2022-10-20 11:29] LABS: ALT (SGPT) 14 U/L (8-55); AST (SGOT) 16 U/L (5-34); Albumin 4.2 g/dL (3.5-5.0); Alkaline Phosphatase 158 U/L (40-110); Anion Gap 14 mmol/L (10-20); BUN (Urea Nitrogen) 6 mg/dL (7.0-18.7); Bilirubin, Total 0.4 mg/dL (0.2-1.2); Calc. Creatinine Clearance 0 mL/min (70-130); Calcium 9.5 mg/dL (7.8-10.44); Carbon Dioxide 22 mmol/L (22-29); Chloride 109 mmol/L (98-107); Estimated GFR 116; Globulin 3.6 g/dL (2.4-3.5); Glucose 181 mg/dL (70-105); Lipase 10 U/L (8-78); Potassium 3.6 mmol/L (3.5-5.1); Protein, Total 7.8 g/dL (6.0-8.3); Sodium 141 mmol/L (136-145)
[2022-10-20] MEDS ORDERED: Morphine 4 MG/ML VIAL ONE (11:53)
[2022-10-20] MEDS ORDERED: Iopamidol-370 76% 500 ML MDV (1 ML CHARGE) ONE (13:56)
[2022-10-20] MEDS ORDERED: Diazepam 10 MG/2 ML SYRINGE ONE (14:04)
[2022-10-20 16:02] LABS: Troponin I Less than 0.010 ng/mL (< 0.028)
[2022-10-20 16:05] LABS: SARS-CoV-2 NAA Rapid Test Not Detected (NotDetected)
[2022-10-20] MEDS ORDERED: Haloperidol Lactate 5 MG/ML VIAL ONE (16:23)
[2022-10-20] MEDS ORDERED: Acetaminophen 325 MG TAB PO PRN (16:37)
[2022-10-20] MEDS ORDERED: Ondansetron ODT 4 MG TAB SL PRN (16:45)
[2022-10-20] MEDS ORDERED: Lactated Ringer's 1,000 ML IV SCH (16:45)
[2022-10-20] MEDS ORDERED: Ondansetron PF 4 MG/2 ML Vial IVP PRN (16:45)
[2022-10-20] MEDS: Sodium Chloride 0.9% 1,000 ML IV SCH (18:41)
[2022-10-20 19:13] VITALS: BMI 24.6
[2022-10-20] MEDS ORDERED: Ketorolac Tromethamine 30 MG/ML VIAL IVP SCH (19:30)
[2022-10-20] MEDS: Metoclopramide HCl 10 MG/2 ML VIAL IVP SCH (20:07)
[2022-10-21] MEDS: Sodium Chloride 0.9% 1,000 ML IV SCH ×2 (05:14→21:19)
[2022-10-21 05:59] LABS: #Monocytes 0.6 thou/uL (0.11-0.59); #Neutrophils 4.2 thou/uL (1.40-6.50); %Basophils 0.4 % (0.0-1.0); %Eosinophils 0.1 % (0.0-10.0); %Lymphocytes 28.5 % (21.0-51.0); %Monocytes 8.9 % (0.0-10.0); %Neutrophils 61.8 % (42.0-75.0); Hematocrit 29.8 % (36.0-47.0); Mean Corpuscular HGB CONC 31.5 g/dL (32.0-36.0); Mean Corpuscular Hemoglobin 28.1 pg (27.0-31.0); Mean Platelet Volume 11.3 fL (7.4-10.4); Platelet Count 205 10x3/uL (130-400); RBC Distribution Width 13.8 % (11.5-14.5); Red Blood Cell (RBC) Count 3.34 mill/uL (4.20-5.40); White Blood Cell (WBC) Count 6.8 10x3/uL (4.8-10.8)
[2022-10-21 06:17] LABS: Hemoglobin 9.4 g/dL (12.0-16.0)
[2022-10-21 06:18] LABS: Mean Corpuscular Volume 89.2 fl (78.0-98.0)
[2022-10-21 06:21] LABS: Anion Gap 9 mmol/L (10-20); BUN (Urea Nitrogen) 6 mg/dL (7.0-18.7); Calc. Creatinine Clearance 140 mL/min (70-130); Calcium 8.4 mg/dL (7.8-10.44); Carbon Dioxide 25 mmol/L (22-29); Chloride 114 mmol/L (98-107); Estimated GFR 120; Glucose 84 mg/dL (70-105); Potassium 3.5 mmol/L (3.5-5.1); Sodium 144 mmol/L (136-145)
[2022-10-21] MEDS: Pantoprazole 40 MG VIAL IVP SCH (08:20)
[2022-10-21] MEDS: Metoclopramide HCl 10 MG/2 ML VIAL IVP SCH ×2 (08:20→21:19)
[2022-10-21] MEDS ORDERED: Ipratropium/Albuterol 3 ML NEB NEB PRN (09:08)
[2022-10-21] MEDS: Montelukast Sodium 10 mg Tablet PO SCH (10:20)
[2022-10-21] MEDS: Ketorolac Tromethamine 30 MG/ML VIAL IVP PRN ×2 (11:24→21:14)
[2022-10-21] MEDS: Ondansetron PF 4 MG/2 ML Vial IVP PRN ×2 (12:42→21:14)
[2022-10-21] MEDS ORDERED: Morphine 4 MG/ML VIAL SLOW IVP SCH (15:15)
[2022-10-21] MEDS: Thiamine HCl 200 MG/2 ML VIAL SLOW IVP SCH (15:37)
[2022-10-21] MEDS ORDERED: Ondansetron PF 4 MG/2 ML Vial IVP SCH (15:45)
[2022-10-21] MEDS: Scopolamine 1.5 mg/72 hour Patch TD SCH (15:55)
[2022-10-21] MEDS ORDERED: Morphine 2 MG/ML VIAL SLOW IVP SCH (23:45)
[2022-10-22] MEDS: Ondansetron PF 4 MG/2 ML Vial IVP PRN ×5 (01:22→20:57)
[2022-10-22 04:53] LABS: #Monocytes 0.5 thou/uL (0.11-0.59); %Basophils 0.6 % (0.0-1.0); %Monocytes 7.1 % (0.0-10.0); Hematocrit 34.3 % (36.0-47.0); Hemoglobin 11.1 g/dL (12.0-16.0); Mean Corpuscular HGB CONC 32.4 g/dL (32.0-36.0); Mean Corpuscular Hemoglobin 28.5 pg (27.0-31.0); Mean Corpuscular Volume 87.9 fl (78.0-98.0); Mean Platelet Volume 11.5 fL (7.4-10.4); Platelet Count 224 10x3/uL (130-400); RBC Distribution Width 13.8 % (11.5-14.5); White Blood Cell (WBC) Count 6.7 10x3/uL (4.8-10.8)
[2022-10-22 05:15] LABS: Anion Gap 11 mmol/L (10-20); BUN (Urea Nitrogen) 4 mg/dL (7.0-18.7); Calc. Creatinine Clearance 137 mL/min (70-130); Calcium 8.7 mg/dL (7.8-10.44); Carbon Dioxide 24 mmol/L (22-29); Chloride 108 mmol/L (98-107); Estimated GFR 119; Glucose 112 mg/dL (70-105); Potassium 3.2 mmol/L (3.5-5.1); Sodium 140 mmol/L (136-145)
[2022-10-22 05:44] LABS: Ferritin 16.38 ng/mL (10-291)
[2022-10-22] MEDS: Metoclopramide HCl 10 MG/2 ML VIAL IVP SCH (08:48)
[2022-10-22] MEDS: Montelukast Sodium 10 mg Tablet PO SCH (08:48)
[2022-10-22] MEDS: Sodium Chloride 0.9% 1,000 ML IV SCH (08:49)
[2022-10-22] MEDS: Pantoprazole 40 MG VIAL IVP SCH (08:49)
[2022-10-22] MEDS: Ketorolac Tromethamine 30 MG/ML VIAL IVP PRN (09:04)
[2022-10-22] MEDS ORDERED: Losartan 25 MG TAB PO SCH (10:00)
[2022-10-22] MEDS ORDERED: Potassium Chloride 20 MEQ TAB PO SCH ×2 (10:15→17:00)
[2022-10-22] MEDS ORDERED: Electrolyte Replacement Protocol FS PRN (12:15)
[2022-10-22] MEDS: Potassium Chloride 20 MEQ in Premix Bag 1 BAG IVPB SCH ×2 (12:34→15:24)
[2022-10-22] MEDS: Morphine 2 MG/ML VIAL SLOW IVP PRN ×2 (13:34→21:01)
[2022-10-22 14:36] LABS: Magnesium 1.7 mg/dL (1.6-2.6)
[2022-10-22] MEDS: Thiamine HCl 200 MG/2 ML VIAL SLOW IVP SCH (15:21)
[2022-10-22] MEDS: Metoclopramide HCl 10 MG TAB PO SCH (20:57)
[2022-10-23] MEDS: Sodium Chloride 0.9% 1,000 ML IV SCH ×2 (00:17→18:39)
[2022-10-23] MEDS: Morphine 2 MG/ML VIAL SLOW IVP PRN ×5 (01:54→20:17)
[2022-10-23] MEDS: Ondansetron PF 4 MG/2 ML Vial IVP PRN ×5 (01:54→20:16)
[2022-10-23 05:28] LABS: #Monocytes 0.3 thou/uL (0.11-0.59); #Neutrophils 4.8 thou/uL (1.40-6.50); %Basophils 0.6 % (0.0-1.0); %Eosinophils 0.6 % (0.0-10.0); %Lymphocytes 17.6 % (21.0-51.0); %Monocytes 5.1 % (0.0-10.0); %Neutrophils 75.9 % (42.0-75.0); Hematocrit 37.7 % (36.0-47.0); Hemoglobin 11.9 g/dL (12.0-16.0); Mean Corpuscular HGB CONC 31.6 g/dL (32.0-36.0); Mean Corpuscular Hemoglobin 27.9 pg (27.0-31.0); Mean Corpuscular Volume 88.5 fl (78.0-98.0); Mean Platelet Volume 11.9 fL (7.4-10.4); Platelet Count 173 10x3/uL (130-400); RBC Distribution Width 13.7 % (11.5-14.5); Red Blood Cell (RBC) Count 4.26 mill/uL (4.20-5.40); White Blood Cell (WBC) Count 6.3 10x3/uL (4.8-10.8)
[2022-10-23 05:55] LABS: Anion Gap 13 mmol/L (10-20); BUN (Urea Nitrogen) 5 mg/dL (7.0-18.7); Calc. Creatinine Clearance 137 mL/min (70-130); Calcium 8.8 mg/dL (7.8-10.44); Carbon Dioxide 23 mmol/L (22-29); Chloride 106 mmol/L (98-107); Estimated GFR 119; Glucose 109 mg/dL (70-105); Potassium 3.3 mmol/L (3.5-5.1); Sodium 139 mmol/L (136-145)
[2022-10-23] MEDS ORDERED: Potassium Chloride 20 MEQ TAB PO SCH ×2 (08:00→14:00)
[2022-10-23] MEDS ORDERED: Magnesium 2 GM/50 ML(in water) 2 GM in Premix Bag 1 BAG IVPB SCH (09:00)
[2022-10-23] MEDS ORDERED: Sertraline 100 MG TAB PO SCH (09:22)
[2022-10-23] MEDS: Pantoprazole 40 MG VIAL IVP SCH (09:24)
[2022-10-23] MEDS ORDERED: Magnesium Sulfate In Water 4 GM in Premix Bag 1 BAG IVPB SCH (09:30)
[2022-10-23] MEDS: Metoclopramide HCl 10 MG TAB PO SCH ×3 (09:42→20:16)
[2022-10-23] MEDS: Losartan 25 MG TAB PO SCH ×2 (10:19→15:27)
[2022-10-23] MEDS: Montelukast Sodium 10 mg Tablet PO SCH (10:19)
[2022-10-23] MEDS: Potassium Chloride 20 MEQ in Premix Bag 1 BAG IVPB SCH ×2 (10:42→13:13)
[2022-10-23 14:17] LABS: Potassium 3.7 mmol/L (3.5-5.1)
[2022-10-23] MEDS: Thiamine HCl 200 MG/2 ML VIAL SLOW IVP SCH (14:33)
[2022-10-24] MEDS: Sodium Chloride 0.9% 1,000 ML IV SCH ×2 (00:03→14:21)
[2022-10-24] MEDS: Ondansetron PF 4 MG/2 ML Vial IVP PRN ×5 (00:21→19:58)
[2022-10-24] MEDS: Morphine 2 MG/ML VIAL SLOW IVP PRN ×5 (00:21→19:58)
[2022-10-24] MEDS: hydrALAZINE 20 MG/ML VIAL SLOW IVP PRN ×3 (00:31→14:24)
[2022-10-24 05:36] LABS: #Monocytes 0.3 thou/uL (0.11-0.59); #Neutrophils 4.8 thou/uL (1.40-6.50); %Basophils 0.5 % (0.0-1.0); %Eosinophils 0.2 % (0.0-10.0); %Lymphocytes 14.3 % (21.0-51.0); %Monocytes 5.4 % (0.0-10.0); %Neutrophils 79.3 % (42.0-75.0); Hematocrit 38.4 % (36.0-47.0); Hemoglobin 12.5 g/dL (12.0-16.0); Mean Corpuscular HGB CONC 32.6 g/dL (32.0-36.0); Mean Corpuscular Hemoglobin 27.9 pg (27.0-31.0); Mean Platelet Volume 11.5 fL (7.4-10.4); Platelet Count 252 10x3/uL (130-400); RBC Distribution Width 13.5 % (11.5-14.5); Red Blood Cell (RBC) Count 4.48 mill/uL (4.20-5.40); White Blood Cell (WBC) Count 6.1 10x3/uL (4.8-10.8)
[2022-10-24 05:38] LABS: Mean Corpuscular Volume 85.7 fl (78.0-98.0)
[2022-10-24 06:06] LABS: Anion Gap 12 mmol/L (10-20); BUN (Urea Nitrogen) 7 mg/dL (7.0-18.7); Calc. Creatinine Clearance 140 mL/min (70-130); Calcium 8.8 mg/dL (7.8-10.44); Carbon Dioxide 25 mmol/L (22-29); Chloride 103 mmol/L (98-107); Estimated GFR 120; Glucose 111 mg/dL (70-105); Magnesium 2.1 mg/dL (1.6-2.6); Potassium 3.1 mmol/L (3.5-5.1); Sodium 137 mmol/L (136-145)
[2022-10-24] MEDS ORDERED: Potassium Chloride 40 MEQ in Premix Bag 1 BAG IVPB SCH (09:00)
[2022-10-24] MEDS ORDERED: Magnesium 2 GM/50 ML(in water) 2 GM in Premix Bag 1 BAG IVPB SCH (09:00)
[2022-10-24] MEDS: Potassium Chloride 20 MEQ TAB PO SCH ×2 (09:11→10:00)
[2022-10-24] MEDS: Metoclopramide HCl 10 MG TAB PO SCH ×3 (09:11→19:59)
[2022-10-24] MEDS: Losartan 25 MG TAB PO SCH (09:11)
[2022-10-24] MEDS: Montelukast Sodium 10 mg Tablet PO SCH (09:11)
[2022-10-24] MEDS: Sertraline 100 MG TAB PO SCH (09:11)
[2022-10-24] MEDS: Pantoprazole 40 MG VIAL IVP SCH (09:12)
[2022-10-24] MEDS: Potassium Chloride 40 MEQ in Sodium Chloride 0.9% 250 ML 250 ML IVPB SCH (10:01)
[2022-10-24] MEDS: Thiamine HCl 200 MG/2 ML VIAL SLOW IVP SCH (14:24)
[2022-10-24] MEDS: Scopolamine 1.5 mg/72 hour Patch TD SCH (15:49)
[2022-10-25] MEDS: Potassium Chloride 40 MEQ in Sodium Chloride 0.9% 250 ML 250 ML IVPB SCH (00:35)
[2022-10-25] MEDS: Morphine 2 MG/ML VIAL SLOW IVP PRN ×3 (00:35→09:23)
[2022-10-25] MEDS: Ondansetron PF 4 MG/2 ML Vial IVP PRN ×2 (00:35→04:42)
[2022-10-25 05:48] LABS: #Monocytes 0.4 thou/uL (0.11-0.59); #Neutrophils 4.2 thou/uL (1.40-6.50); %Basophils 0.4 % (0.0-1.0); %Eosinophils 0.4 % (0.0-10.0); %Lymphocytes 13.5 % (21.0-51.0); %Monocytes 6.9 % (0.0-10.0); %Neutrophils 78.4 % (42.0-75.0); Hematocrit 36.3 % (36.0-47.0); Hemoglobin 11.4 g/dL (12.0-16.0); Mean Corpuscular HGB CONC 31.4 g/dL (32.0-36.0); Mean Corpuscular Hemoglobin 27.8 pg (27.0-31.0); Mean Corpuscular Volume 88.5 fl (78.0-98.0); Platelet Count 252 10x3/uL (130-400); White Blood Cell (WBC) Count 5.4 10x3/uL (4.8-10.8)
[2022-10-25 06:15] LABS: Anion Gap 12 mmol/L (10-20); BUN (Urea Nitrogen) 10 mg/dL (7.0-18.7); Calc. Creatinine Clearance 133 mL/min (70-130); Calcium 8.4 mg/dL (7.8-10.44); Carbon Dioxide 25 mmol/L (22-29); Chloride 107 mmol/L (98-107); Estimated GFR 118; Glucose 97 mg/dL (70-105); Potassium 3.6 mmol/L (3.5-5.1); Sodium 140 mmol/L (136-145)
[2022-10-25] MEDS: Sertraline 100 MG TAB PO SCH (09:24)
[2022-10-25] MEDS: Pantoprazole 40 MG VIAL IVP SCH (09:24)
[2022-10-25] MEDS: Metoclopramide HCl 10 MG TAB PO SCH (09:25)
[2022-10-25] MEDS: Losartan 25 MG TAB PO SCH (09:25)
[2022-10-25] MEDS: Montelukast Sodium 10 mg Tablet PO SCH (09:25)
[2022-10-25 11:53] VITALS: BP 169/103; TEMP 98.7
== END 2022-10-25 12:55 | disposition home or self-care (01) | DRG 881 ==
LOC: ERS 10:26 → ERHOLD 16:23 → 2SW 18:34 → OBSVTOIN 10-22 15:26
PROVIDERS: ADMIT Family Medicine; ATTEND Family Medicine
DX: F32.A Depression, unspecified (principal); J45.909 Unspecified asthma, uncomplicated; E87.6 Hypokalemia; R11.2 Nausea with vomiting, unspecified; E83.42 Hypomagnesemia; Z96.641 Presence of right artificial hip joint; Z98.51 Tubal ligation status; Z98.890 Other specified postprocedural states; Z90.49 Acquired absence of other specified parts of digestive tract; Z88.0 Allergy status to penicillin; Z98.84 Bariatric surgery status; Z79.51 Long term (current) use of inhaled steroids; Z79.899 Other long term (current) drug therapy
CPT/HCPCS: 36415; 71045; 74177; 74220; 80048; 80053; 82306; 82607; 82728; 83690; 83735; 84425; 84484; 84702; 85025; 93005; 96361; 96365; 96366; 96375; 96376; C9113; G0378; J0360; J1630; J1885; J2270; J2272; J2405; J2765; J3360; J3411; J3475; J3480; J7050; Q9967

== ENCOUNTER 2023-12-26 09:40 | Outpatient (CLI) | payer BC | END 2023-12-26 09:41 | disposition home or self-care (01) | LOC: ULT 09:40 | PROVIDERS: ATTEND Family Medicine | DX: N90.89 Other specified noninflammatory disorders of vulva and perineum (principal) | CPT/HCPCS: 76856 ==

== ENCOUNTER 2024-04-26 09:02 | Observation (INO) | payer BC ==
[2024-04-26] MEDS ORDERED: Dicyclomine 20 MG/2 ML VIAL ONE (10:59)
[2024-04-26] MEDS ORDERED: Ondansetron PF 4 MG/2 ML Vial ONE (10:59)
[2024-04-26 11:09] LABS: #Basophils Less than 0.03 10x3/uL (0.0-0.2); #Eosinophils Less than 0.03 10x3/uL (0.0-0.7); %Basophils 0.4 % (0.0-1.0); %Lymphocytes 8.4 % (21.0-51.0); %Monocytes 1.7 % (0.0-10.0); %Neutrophils 89.3 % (42.0-75.0); Hematocrit 31.2 % (36.0-47.0); Hemoglobin 9.3 g/dL (12.0-16.0); Mean Corpuscular HGB CONC 29.8 g/dL (32.0-36.0); Mean Corpuscular Hemoglobin 21.8 pg (27.0-31.0); Mean Corpuscular Volume 73.2 fL (78.0-98.0); Mean Platelet Volume 9.8 fL (7.4-10.4); Platelet Count 285 10x3/uL (130-400); RBC Distribution Width 16.9 % (11.5-14.5); Red Blood Cell (RBC) Count 4.26 mill/uL (4.20-5.40)
[2024-04-26 11:10] LABS: ALT (SGPT) 9 U/L (Less than 34); AST (SGOT) 19 U/L (11-34); Albumin 4.1 g/dL (3.1-4.5); Alkaline Phosphatase 123 U/L (40-110); Anion Gap 14 mmol/L (10-20); BUN (Urea Nitrogen) 9 mg/dL (7.0-18.7); Bilirubin, Total 0.3 mg/dL (0.3-1.2); Calc. Creatinine Clearance 0 mL/min (70-130); Calcium 8.9 mg/dL (7.8-10.44); Carbon Dioxide 21 mmol/L (22-29); Chloride 108 mmol/L (98-107); Estimated GFR 120; Globulin 3.6 g/dL (2.4-3.5); Glucose 162 mg/dL (70-105); Potassium 4.1 mmol/L (3.5-5.1); Protein, Total 7.7 g/dL (6.0-8.3); Sodium 139 mmol/L (136-145)
[2024-04-26] MEDS ORDERED: diphenhydrAMINE 50 MG/ML VIAL ONE (11:28)
[2024-04-26] MEDS ORDERED: Metoclopramide HCl 10 MG (2 mL) VIAL ONE ×2 (11:28→17:00)
[2024-04-26 12:58] LABS: BHCG - Serum Negative (NEGATIVE); Pregs Control Background? CLEAR/WHITE (CLR/WHITE); Pregs Control Bar Appear? YES (CONTROL BAR)
[2024-04-26] MEDS ORDERED: Pantoprazole 40 MG VIAL ONE (14:18)
[2024-04-26 14:34] LABS: Bacteria/HPF None Seen HPF (None Seen); Bilirubin Negative (Negative); Blood, Urine Negative (Negative); CAUTI Indications for Culture Pelvic or flank pain; Clarity Clear (Clear); Glucose, Urine (Dipstick) 30 mg/dL (Negative); Ketone, Urine 40 mg/dL (Negative); Leukocyte Negative Leu/uL (Negative); Nitrite Negative (Negative); Protein, Urine (Dipstick) 20 mg/dL (Neg-Trace); RBC/HPF 0-3 HPF (0-3); Squamous Epithelial 0-3 HPF (0-3); Urobilinogen Normal mg/dL (Less than 2)
[2024-04-26 14:41] LABS: Specific Gravity, Urine 1.049 (1.002-1.036)
[2024-04-26 14:43] LABS: Urine Culture Reflex No No
[2024-04-26] MEDS ORDERED: Iopamidol-370 76% 500 ML MDV (1 ML CHARGE) ONE (14:53)
[2024-04-26] MEDS ORDERED: Acetaminophen 325 MG TAB PO PRN (17:35)
[2024-04-26] MEDS: Sodium Chloride 0.9% 1,000 ML IV SCH (18:46)
[2024-04-26] MEDS: Pantoprazole 40 MG VIAL IVP SCH (19:38)
[2024-04-26] MEDS: Ondansetron PF 4 MG/2 ML Vial IVP PRN (19:38)
[2024-04-26 21:20] VITALS: BMI 23.4
[2024-04-27] MEDS: Metoclopramide HCl 10 MG (2 mL) VIAL IVP PRN (00:04)
[2024-04-27 07:34] LABS: Hematocrit 25.6 % (36.0-47.0); Hemoglobin 7.7 g/dL (12.0-16.0); Mean Corpuscular HGB CONC 30.1 g/dL (32.0-36.0); Mean Corpuscular Hemoglobin 22.2 pg (27.0-31.0); Mean Corpuscular Volume 73.8 fL (78.0-98.0); Mean Platelet Volume 10.4 fL (7.4-10.4); Platelet Count 258 10x3/uL (130-400); RBC Distribution Width 17.3 % (11.5-14.5); Red Blood Cell (RBC) Count 3.47 mill/uL (4.20-5.40)
[2024-04-27 07:58] LABS: ALT (SGPT) 10 U/L (Less than 34); AST (SGOT) 29 U/L (11-34); Albumin 3.4 g/dL (3.1-4.5); Alkaline Phosphatase 102 U/L (40-110); Anion Gap 13 mmol/L (10-20); BUN (Urea Nitrogen) 6 mg/dL (7.0-18.7); Bilirubin, Total 0.4 mg/dL (0.3-1.2); Calc. Creatinine Clearance 159 mL/min (70-130); Calcium 8.4 mg/dL (7.8-10.44); Carbon Dioxide 18 mmol/L (22-29); Chloride 114 mmol/L (98-107); Estimated GFR 125; Globulin 3.2 g/dL (2.4-3.5); Glucose 123 mg/dL (70-105); Potassium 3.7 mmol/L (3.5-5.1); Protein, Total 6.6 g/dL (6.0-8.3); Sodium 141 mmol/L (136-145)
[2024-04-27 08:09] LABS: Band 1 % (5-11); Large Platelets 3.7 % (0-5); Lymphocytes 7 % (21-51); Monocytes 1 % (0-10); Neutrophil 91 % (42-75); Ovalocytes SLIGHT = 2-5 cells HPF (0-1); Platelet Adequacy Comment Platelets Normal; Polychromasia SLIGHT = 2-3 cells HPF (0-2)
[2024-04-27 08:23] VITALS: BP 122/84; TEMP 98.7
[2024-04-27] MEDS: Enoxaparin 40 MG (0.4 mL) SYRINGE SC SCH (08:36)
== END 2024-04-27 11:53 | disposition home or self-care (01) ==
LOC: ERS 09:02 → SUATTDRO 09:02 → INTOOBSV 16:51 → T4-B 16:51
PROVIDERS: ADMIT Family Medicine; ATTEND Family Medicine
DX: R11.2 Nausea with vomiting, unspecified (principal); E87.20 Acidosis, unspecified; D64.9 Anemia, unspecified; Z98.84 Bariatric surgery status; Z98.51 Tubal ligation status; Z90.49 Acquired absence of other specified parts of digestive tract; Z98.890 Other specified postprocedural states; Z88.0 Allergy status to penicillin; Z79.899 Other long term (current) drug therapy
CPT/HCPCS: 36415; 74177; 80053; 81001; 84443; 84703; 85025; J1200; J1650; J2405; J2470; J2765; J7030; Q9967